=== PATIENT | male | born 1965 | race Caucasian/White ===

== ENCOUNTER 2021-03-29 22:21 | Inpatient (IN) | payer BC, SELFPAY ==
--- NOTE | ~2021-03-29 | XR_ITS ---
EXAMINATION: XR chest 1V portable DATE: 04/01/2021 06:04 INDICATION: Pneumonia TECHNIQUE: frontal view of the chest was obtained. COMPARISON: Chest radiograph dated 03/29/2021 FINDINGS: Hyperexpansion of lungs with scattered regions of increased lucency consistent with emphysema. Patchy airspace opacities throughout the right lung consistent with pneumonia. Pleural-parenchymal scarring at the lung bases. No pneumothorax or definitive pleural effusion. The cardiomediastinal silhouette is normal. IMPRESSION: 1. Scattered airspace opacities throughout the right lung consistent with pneumonia. 2. Emphysema. Reviewed, dictated and finalized at location A. IMPRESSION: 1. Scattered airspace opacities throughout the right lung consistent with pneum onia. 2. Emphysema.
--- NOTE | ~2021-03-29 | XR_ITS ---
EXAMINATION: XR chest 2V DATE: 04/02/2021 07:43 INDICATION: Follow-up pneumonia TECHNIQUE: PA and lateral views of the chest were obtained. COMPARISON: Chest radiograph dated 04/01/2021 and 10/12/2016 FINDINGS: Hyperexpansion of lungs with scattered regions of and architectural distortion with increased lucency consistent with emphysema. No significant change in scattered patchy airspace opacities in the right middle and upper lobes. Curved band of discoid atelectasis/scarring the left lower lung zone. Small right pleural effusion. The cardiomediastinal silhouette is normal. IMPRESSION: 1. No significant interval change in patchy airspace opacities in the right middle and upper lobes co nsistent with pneumonia. 2. Small right pleural effusion. 3. Emphysema. Reviewed, dictated and finalized at location A. IMPRESSION: 1. No significant interval change in patchy airspace opacities in the right mid dle and upper lobes consistent with pneumonia. 2. Small right pleural effusion. 3. Emphysema.
--- NOTE | ~2021-03-29 | XR_ITS ---
EXAMINATION: XR chest 2V DATE: 03/29/2021 23:15 INDICATION: Shortness of breath TECHNIQUE: PA and lateral views of the chest are obtained. COMPARISON: 10/19/2017 FINDINGS: There are airspace opacities of the right upper lobe. The lungs are hyperinflated. There is no pleural effusion or pneumothorax. The cardiomediastinal silhouette is normal. The visualized bone s and soft tissues are unremarkable. IMPRESSION: 1. Right upper lobe airspace opacities which may reflect pneumonia. Recommend followup radiographs in 10-14 days after appropriate therapy to evaluate for improvement/resolution. Reviewed, dictated and finalized at location A. IMPRESSION: 1. Right upper lobe airspace opacities which may reflect pneumonia. Recommend f ollowup radiographs in 10-14 days after appropriate therapy to evaluate for imp rovement/resolution.
[2021-03-29 22:23] VITALS: BP 170/116; PULSE 122; RESP 21; O2SAT 100
[2021-03-29 22:30] VITALS: O2SAT 98
--- NOTE | 2021-03-29 22:33 | ECG_ITS ---
Measurements Intervals [place] Rate: 120 P: 82 UT: 200 QRS: 68 QRSD: 83 T: 84 QT: 411 QTc: 581 Interpretive Statements SINUS TACHYCARDIA BASELINE ARTIFACT- I, II, III, AVL, V1, V3, V6 ABNORMAL ECG Electronically Signed On 03-30-2021 8:19:42 CDT by Douglas Mancera D.O.
[2021-03-29 22:45] VITALS: BP 140/83; PULSE 122; RESP 23; O2SAT 100
[2021-03-29 22:50] VITALS: PULSE 123; RESP 17
[2021-03-29] MEDS: IPRATROPIUM BR 0.02% INH SOLN 0.5 MG/2.5 ML VIAL INHALATION (22:50)
[2021-03-29] MEDS: ALBUTEROL SULFATE NEB 2.5 MG/0.5 ML INH 5 MG INHALATION (22:50)
[2021-03-29 22:52] LABS: Basophils Absolute Auto 0.1 K/mm3 (0.0-0.1); Basophils Percent Auto 0.5 % (0.2-1.2); Eosinophils Absolute Auto 0.1 K/mm3 (0-0.3); Eosinophils Percent Auto 0.8 % (0-4.4); Hematocrit 56.8 % (42.0-52.0); Hemoglobin 18.2 g/dL (14.0-18.0); Immature Granulocyte Percent A 0.6 % (0-0.5); Lymphocytes Absolute Auto 0.87 K/mm3 (0.9-3.2); Lymphocytes Percent Auto 5.2 % (18.3-44.2); Mean Corpuscular Hemoglobin 29.4 pg (26-34); Mean Corpuscular Volume 91.8 fl (80-100); Mean Platelet Volume 10.6 fl (7.4-10.4); Monocytes Absolute Auto 1.3 K/mm3 (0.1-0.6); Monocytes Percent Auto 7.9 % (2.6-8.5); Neutrophils Absolute Auto 14.1 K/mm3 (1.3-6.7); Platelet Count Result 256 k/mm3 (150-375); Red Blood Count 6.19 M/mm3 (4.6-6.20); Red Cell Distribution Width 12.8 % (11.5-14.5); White Blood Count 16.6 K/mm3 (4.5-10.0)
[2021-03-29] MEDS: methylPREDNISolone SOD SUCC 125 MG VIAL IV PUSH (22:55)
[2021-03-29 23:00] VITALS: BP 142/79; PULSE 121; PULSE 123; RESP 15; RESP 18; O2SAT 100
[2021-03-29 23:11] LABS: Lactic Acid Reflex 1.4 mmol/L (0.7-2.1)
[2021-03-29 23:19] LABS: Anion Gap 12 mmol/L (8-16); Blood Urea Nitrogen 20 mg/dL (9-20); Calcium 9.7 mg/dL (8.4-10.2); Carbon Dioxide 32 mmol/L (22-30); Chloride 100 mmol/L (98-107); Estimated CRCL calculation 70 ml/min; Estimated Glomerular Filt Rate > 60; Glucose 160 mg/dL (75-110); Potassium 4.3 mmol/L (3.4-5.0); Sodium 144 mmol/L (137-145)
--- NOTE | 2021-03-29 23:23 | ED.SOB ---
HPI - SOB/Dyspnea General Chief Complaint: Shortness of Breath/Dyspnea Stated Complaint: SOB, fever Time Seen by Provider: 03/29/21 22:28 History of Present Illness HPI Narrative: Patient is a 55-year-old male with history of COPD who is oxygen dependent that presents ER with increased shortness of breath over the last 2 days. Associate with fevers and sweats and cough. Patient found to be hypoxic while on 3 to 4 L of O2 and is now on 5 L. Denies chest pain or chest pressure. No nausea/vomiting. No known sick contacts. 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 Has been using nebulizers at home without improvement. Related Data Home Medications Medication Instructions Recorded Confirmed guaifenesin 600 mg tablet, 600 mg PO BID 02/12/20 03/30/21 extended release 12 hr Allergies Allergy/AdvReac Type Severity Reaction Status Date / Time cephalexin Allergy Unknown Skin Verified 11/28/20 16:04 Reaction Review of Systems Review of Systems: All systems reviewed & are unremarkable except as noted in HPI and below Constitutional: Constitutional: Denies chills and Reports fever(s) Comments: Sweats ENT: Denies nasal congestion and Denies sore throat Cardiovascular: Cardiovascular: Denies chest pain and Denies radiating jaw, neck or arm pain Respiratory: Respiratory: Reports cough, Reports dyspnea and Denies wheezing Gastrointestinal: Gastrointestinal: Denies abdominal pain, Denies nausea and Denies vomiting FOR[facility]LY [facility], [facility] Past Medical History Medical History (Updated 03/30/21 @ 06:15 by Hardy Montanez MD) Chronic respiratory failure COPD (chronic obstructive pulmonary disease) Hypoxemia Shortness of breath Surgical History Surgical History (Updated 03/30/21 @ 05:59 by Estela Doran DO) H/O umbilical hernia repair Family History Family History Mother Family history of thyroid disease Sibling Family history of thyroid disease Diabetes mellitus Grandparent Diabetes mellitus Social History Social History Smoking packs per day: 1.5 Smoking cigarettes per day: 30.0 Years smoked: 40 Smoking pack-years: 60.00 Smoking status: Former smoker Tobacco type: cigarettes Alcohol intake: current Drinks per week: 0 Substance use: never Gender identity (if verbalized by the patient): Male Spiritual care concerns: No Exam Narrative: Exam Narrative: GENERAL: Well-appearing, well-nourished, and in no acute distress. HEAD: Normocephalic, atraumatic. ENT: Mucous membranes moist. CHEST: Diminished throughout. No respiratory distress. HEART: Regular rate and rhythm. Normal peripheral pulses. ABDOMEN: Soft, nontender, nondistended. EXTREMITIES: Normal range of motion. No edema. SKIN: Warm, dry, no rash. NEURO: Alert and oriented x3. PSYCH: Normal mood and affect. Course Course Emergency Course: Patient resting comfortably. Informed results. Admit to the hospital service. Vital Signs Vital signs: Vital Signs Pulse Rate 122 H 03/29/21 22:23 Respiratory Rate 21 H 03/29/21 22:23 Blood Pressure 170/116 H 03/29/21 22:23 Pulse Oximetry 100 03/29/21 22:23 Temperature 97.6 F 03/30/21 04:00 Pulse Rate 88 03/30/21 04:00 Respiratory Rate 18 03/30/21 04:00 Blood Pressure 115/72 03/30/21 04:00 Pulse Oximetry 99 03/30/21 04:00 MDM - SOB/Dyspnea Lab Data Result diagrams: 03/29/21 22:47 03/29/21 22:47 Labs: Lab Results 03/29/21 03/29/21 03/29/21 Range/Units 22:47 22:47 22:47 WBC 16.6 H (4.5-10.0) K/mm3 RBC 6.19 (4.6-6.20) M/mm3 Hgb 18.2 H (14.0-18.0) g/dL Hct 56.8 H (42.0-52.0) % MCV 91.8 (80-100) fl MCH 29.4 (26-34) pg MCHC 32.0 (32-36) g/dl RDW 12.8 (11.5-14.5) % Plt Count 256 (150-375) k/mm3 MPV 10.6 H (7.4-10.4) fl Immature Gran % (Auto) 0.6
[2021-03-30] VITALS (14 sets, daily range): BP systolic 100–147; BP diastolic 62–82; PULSE 68–120; RESP 14–20; TEMP 36.1–36.6; O2SAT 94–100; BMI 25.9
[2021-03-30] MEDS: SODIUM CHLORIDE 0.9% IV 1,000 ML 999 ML IV CONT (00:08)
--- NOTE | 2021-03-30 02:47 | ADMGEN ---
This patient, Alpesh Aguilar, was admitted to [facility] Surg Room 330-01. Patient/family oriented to hospital policies and general routines including ID bracelet, bed and alarms, visiting hours, pain management, procedures, bathroom and other care routines, personal items, smoking policy, room service/diet, and visiting hours. Information on how to activate the Rapid Response Team has been discussed. Patient/Family are encouraged to report perceived risks to care and to ask questions if they do not understand what they are told or what they should do.
--- NOTE | 2021-03-30 05:58 | PM.IMHP ---
H&P: HPI History of Present Illness Date/Time: 03/30/21 05:58 Chief Complaint: Shortness of breath Narrative: 55-year-old male with past medical history of COPD resulting in chronic hypoxic respiratory failure who presented to the ER via private vehicle due to increasing shortness of breath. The patient reports that he began having increased shortness of breath on Wednesday. He was at work sitting at his desk when he became hot and sweaty. He developed the headache and was fatigued. He felt so bad that he left work early. When he got home he put his home O2 on. He reports that he usually only uses his home oxygen at night to sleep. He will also use it in periods of illness. He is usually on 2-3 L nasal cannula but had increased his oxygen to 4 L and was satting 88%. He is usually satting 92-93% per his report. He had abdominal respirations and retractions noted when he arrived to the ER. He denied any increased cough. He denies any significant sputum production be beyond his usual. He has not felt any usual chest heaviness that he develops when he has a COPD exacerbation. He has been using his nebulizer treatments and home inhalers at home without improvement in symptoms. He denies any chest pain. He has had increased dyspnea on exertion which is improved when he lays down. Has not noticed any lower extremity swelling, paroxysmal nocturnal dyspnea or orthopnea. He reports that 1 of the women at work did not feel well but she was pressure to come into work. She was not obviously ill. He has not had the COVID vaccine. He denies any loss of sense of taste or smell. He denies myalgias or arthralgias. He continued to have a headache for couple of days but now his headache has resolved. He had noticed that his urine was darker than usual over the last couple of days. He has been staying well hydrated with Gatorade. He has not had much of an appetite and has not eaten much as he is been sleeping most of the days. He has not had any diarrhea or changes in bowel habits. He received a dose of IV Solu-Medrol, nebulizer treatments, and Levaquin in the ER. He used to follow with Dr. Arango but he has not seen a fire engineer in several years. He has not had pneumonia in several years. He quit smoking tobacco in 2018. He has not had any recent COPD exacerbations. He is mostly sedentary at baseline. 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 Review of Systems Review of Systems: Narrative: 12 systems were reviewed with pertinent positives and negatives per HPI. Except as documented in the HPI, all other systems were reviewed and are negative. [facility] Past Medical History Medical History (Updated 03/30/21 @ 07:40 by Estela Doran DO) Chronic respiratory failure COPD (chronic obstructive pulmonary disease) Hypoxemia Polycythemia secondary to hypoxia Shortness of breath Surgical History Surgical History (Updated 03/30/21 @ 05:59 by Estela Doran DO) H/O umbilical hernia repair Family History Family History Mother Family history of thyroid disease Sibling Family history of thyroid disease Diabetes mellitus Grandparent Diabetes mellitus Social History Social History (Updated 03/30/21 @ 07:37 by Estela Doran DO) Social History: He has been twice and lives alone. He has a female friend who comes over each weekend. He does not have any biologic children. 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 He started smoking at 4 years of age in started smoking at least a pack a day around 9 years of age. He smoked as much as 1.5 packs of cigarettes per day. He has a 60 pack per year smoking history. He has 2 cats at home. Primary care physician: Dr. Blu Sarabia Code status: Full code Surrogate decision maker: Kelly Samson (friend) Smoking packs per day: 1.5 Smoking cigarettes per day: 30.0 Years smoked: 40 Smoking pack-years: 60.
[2021-03-30] MEDS: SODIUM CHLORIDE 0.9% IV 1,000 ML 125 ML IV CONT ×2 (06:42→14:54)
[2021-03-30 06:55] LABS: Anion Gap 7 mmol/L (8-16); Blood Urea Nitrogen 16 mg/dL (9-20); Calcium 8.4 mg/dL (8.4-10.2); Carbon Dioxide 26 mmol/L (22-30); Chloride 104 mmol/L (98-107); Estimated CRCL calculation 102 ml/min; Estimated Glomerular Filt Rate > 60; Glucose 182 mg/dL (75-110); Potassium 4.3 mmol/L (3.4-5.0); Sodium 137 mmol/L (137-145)
[2021-03-30 06:56] LABS: Hematocrit 44.8 % (42.0-52.0); Mean Corpuscular HGB Conc 33.5 g/dl (32-36); Mean Corpuscular Hemoglobin 30.1 pg (26-34); Platelet Count Result 208 k/mm3 (150-375); Red Blood Count 4.98 M/mm3 (4.6-6.20); Red Cell Distribution Width 12.6 % (11.5-14.5); White Blood Count 17.1 K/mm3 (4.5-10.0)
[2021-03-30] MEDS: FLUTICASONE/UMECLIDIN/VILANTER 100-62.5-25 MCG ELLIPTA 1 PUFF INHALATION (07:55)
[2021-03-30] MEDS: ALBUTEROL SULFATE (*SP) INHALER 4 PUFF INHALATION ×4 (07:55→21:47)
[2021-03-30] MEDS: ENOXAPARIN 40 MG/0.4 ML SYRINGE SUB-Q (08:42)
[2021-03-30] MEDS: guaiFENesin 12 HR 600 MG TABCR PO ×2 (08:42→21:48)
[2021-03-30 18:03] LABS: Add Urine Microscopic? YES; Appearance Urine Clear (Clear); Bacteria Urine Trace /hpf; Bilirubin Urine Negative (Negative); Blood Urine Negative (Negative); Color Urine Yellow (Yellow); Glucose Urine UA 3+ mg/dL (Negative); Ketones Urine Trace mg/dL (Negative); Leukocyte Esterase Ur Negative LEU/UL (Negative); Mucus Urine Rare /lpf; Nitrate Urine Negative (Negative); Protein Urine 1+ mg/dL (Negative); Squamous Epithelial Cell Urine Rare /hpf (Few); WBC Urine 0-3 /hpf
[2021-03-30 18:10] LABS: Specific Grav Ur 1.032 (1.001-1.035)
[2021-03-31] VITALS (10 sets, daily range): BP systolic 108–129; BP diastolic 62–98; PULSE 64–92; RESP 16–20; TEMP 36.1–36.6; O2SAT 93–99
[2021-03-31] MEDS: ENOXAPARIN 40 MG/0.4 ML SYRINGE SUB-Q (07:58)
[2021-03-31] MEDS: guaiFENesin 12 HR 600 MG TABCR PO (07:58)
[2021-03-31] MEDS: ALBUTEROL SULFATE (*SP) INHALER 4 PUFF INHALATION ×3 (08:02→18:34)
[2021-03-31] MEDS: FLUTICASONE/UMECLIDIN/VILANTER 100-62.5-25 MCG ELLIPTA 1 PUFF INHALATION (08:03)
--- NOTE | 2021-03-31 10:21 | PM.IMPN ---
Progress Note: A&P Assessment and Plan (1) Pneumonia: Qualifiers: Laterality: right Lung location: unspecified part of lung Pneumonia type: due to unspecified organism Qualified Code(s): J18.9 - Pneumonia, unspecified organism Code(s): J18.9 - Pneumonia, unspecified organism Status: Acute Assessment and Plan: Continue with IV antibiotics (2) Suspected COVID-19 virus infection: Code(s): Z20.822 - Contact with and (suspected) exposure to COVID-19 Status: Acute Assessment and Plan: Test result pending, continue with droplet precautions. (3) COPD (chronic obstructive pulmonary disease): Code(s): J44.9 - Chronic obstructive pulmonary disease, unspecified Status: Acute Assessment and Plan: Continue with oxygen and inhalers. Additional Plan The patient has been placed on empiric antibiotic therapy with Levaquin. The patient is on isolation for possible COVID 19. COVID PCR is pending. Patient has been placed on albuterol inhaler 4 puffs q.6 q.i.d. scheduled. Will continue supplemental oxygen and wean for goal oxygen saturations between 88 and 92%. Blood cultures are pending. Will continue current treatment with IV antibiotics. COVID test is pending. Subjective Date/time seen: 03/31/21 10:21 Patient was seen during the morning rounds today. Mild shortness of breath no chest pain. No abdominal pain, no nausea, vomiting. Mood stable. Review of Systems Review of Systems: All systems reviewed & are unremarkable except as noted in HPI and below (the history and physical exam.) Exam Narrative: Exam Narrative: PHYSICAL EXAM: WEIGHT 70.5 kg BMI 25.9 General: No acute distress, well-developed well-nourished, appears stated age HEENT: Mucous membranes are moist, no oral pharyngeal erythema, good dentition, pupils are equal and reactive, nasal cannula in place Respiratory: Clear to auscultation bilaterally posterior lewis, faint end-expiratory wheezing anterior lewis Cardiovascular: Regular rate, regular rhythm, no murmur, 2+ bilateral radial pedal pulses Gastrointestinal: Soft, nontender, nondistended, positive bowel sounds Skin: Non jaundice, no pallor Musculoskeletal: No clubbing, cyanosis or edema Neurological: Alert and oriented, speech is clear, no facial asymmetry Psychiatric: Appropriate mood and affect, pleasant and cooperative : Deferred Hematologic/lymphatic: No petechiae, no bruising, no anterior cervical or submandibular lymphadenopathy Objective Data Vital Signs Vital Signs: Vital Signs - 24 hr 03/30/21 12:00 03/30/21 16:00 03/30/21 20:00 Temperature 36.1 C L 36.2 C L 36.6 C Pulse Rate 88 82 74 Respiratory Rate 16 20 20 Blood Pressure 133/77 147/67 H 100/62 Pulse Oximetry 97 98 95 03/30/21 20:05 03/30/21 21:29 03/31/21 00:00 Temperature 36.1 C L Pulse Rate 79 75 62 Respiratory Rate 16 16 Blood Pressure 110/62 Pulse Oximetry 98 94 98 03/31/21 04:00 03/31/21 06:00 03/31/21 08:00 Temperature 36.1 C L 36.4 C Pulse Rate 66 64 66 Respiratory Rate 20 16 Blood Pressure 108/69 112/67 Pulse Oximetry 99 97 Intake/Output Intake/Output: Intake & Output 03/28/21 03/29/21 03/30/21 03/31/21 23:59 23:59 23:59 23:59 Intake Total 2760 1900 Output Total 1050 Balance 1710 1900 Meds/Results Medications: Active Medications Generic Name Dose Route Start Last Admin Trade Name Freq PRN Reason Stop Dose Admin Acetaminophen 650 mg 03/30/21 00:16 Acetaminophen 325 Mg Tablet PO Q4H PRN Mild Pain (1-3) or Fever Albuterol 4 puff 03/30/21 12:00 03/31/21 08:02 Albuterol Sulfate (*Sp) Inhaler INHALATION 4 puff QIDRT JOE Administration Enoxaparin Sodium 40 mg 03/30/21 09:00 03/31/21 07:58 Enoxaparin 40 Mg/0.4 Ml Syringe SUB-Q 40 mg DAILY JOE Administration Fluticasone/Umeclidinium/Vilanterol 1 puff 03/30/21 08:00 03/31/21 08:03 Fluticasone/Umeclidin/Vilanter 100-62.5
--- NOTE | 2021-03-31 20:49 | PM.EVENT ---
Event Note Event Note Event Note: The patient stated that he cannot wait any longer that he wants to be discharged to home. I reviewed the records and explained to him that the physician had no mention of the patient being discharged. His COVID swab is still pending. I did call the lab and there was a problem with instrumentation and his test had to be sent out. The test results probably will not be until tomorrow night. The patient stated that he would probably sign out AMA and I explained to him that we would not prescribe any antibiotics if he leaves against medical advice and that he does have pneumonia needs requiring oxygen. I do not feel comfortable discharging this patient at this time.
[2021-04-01] VITALS (9 sets, daily range): BP systolic 126–140; BP diastolic 59–79; PULSE 70–101; RESP 16–18; TEMP 36.4–36.9; O2SAT 93
[2021-04-01 06:44] LABS: Hematocrit 43.8 % (42.0-52.0); Hemoglobin 14.6 g/dL (14.0-18.0); Mean Corpuscular HGB Conc 33.3 g/dl (32-36); Mean Corpuscular Hemoglobin 29.7 pg (26-34); Mean Corpuscular Volume 89.2 fl (80-100); Mean Platelet Volume 10.5 fl (7.4-10.4); Platelet Count Result 263 k/mm3 (150-375); Red Blood Count 4.91 M/mm3 (4.6-6.20); Red Cell Distribution Width 12.6 % (11.5-14.5); White Blood Count 10.9 K/mm3 (4.5-10.0)
[2021-04-01 06:49] LABS: Alanine Aminotransferase 45 U/L (4-50); Albumin Level 3.7 g/dL (3.5-5.1); Alkaline Phosphatase 81 U/L (38-126); Anion Gap 10 mmol/L (8-16); Aspartate Amino Transferase 37 U/L (17-59); Bilirubin,Total 0.3 mg/dL (0.2-1.3); Blood Urea Nitrogen 14 mg/dL (9-20); Calcium 8.6 mg/dL (8.4-10.2); Carbon Dioxide 28 mmol/L (22-30); Chloride 102 mmol/L (98-107); Estimated CRCL calculation 88 ml/min; Estimated Glomerular Filt Rate > 60; Glucose 101 mg/dL (75-110); Potassium 3.8 mmol/L (3.4-5.0); Sodium 140 mmol/L (137-145)
[2021-04-01] MEDS: ALBUTEROL SULFATE (*SP) INHALER 4 PUFF INHALATION ×4 (08:18→21:08)
[2021-04-01] MEDS: FLUTICASONE/UMECLIDIN/VILANTER 100-62.5-25 MCG ELLIPTA 1 PUFF INHALATION (08:18)
[2021-04-01] MEDS: ENOXAPARIN 40 MG/0.4 ML SYRINGE SUB-Q (08:19)
[2021-04-01 13:52] LABS: SARS-CoV-2 RNA PCR Negative (Negative)
[2021-04-01] MEDS: SODIUM CHLORIDE 0.9% IV 1,000 ML 125 ML IV CONT ×2 (14:18→23:29)
--- NOTE | 2021-04-01 16:30 | PM.IMPN ---
Progress Note: A&P Assessment and Plan (1) Pneumonia: Qualifiers: Laterality: right Lung location: unspecified part of lung Pneumonia type: due to unspecified organism Qualified Code(s): J18.9 - Pneumonia, unspecified organism Code(s): J18.9 - Pneumonia, unspecified organism Status: Acute Assessment and Plan: Continue with IV antibiotics 04/01/21 16:30 patient with pneumonia suspect patient may have COVID-19 test is pending patient started on Levaquin for bilateral pneumonia, patient insisting to be discharged, after long discussion patient has agreed to wait 1 more day with IV antibiotics and COVID test results, clinically stable will continue to monitor and further recommendation to follow. (2) Suspected COVID-19 virus infection: Code(s): Z20.822 - Contact with and (suspected) exposure to COVID-19 Status: Acute Assessment and Plan: Test result pending, continue with droplet precautions. (3) COPD (chronic obstructive pulmonary disease): Code(s): J44.9 - Chronic obstructive pulmonary disease, unspecified Status: Acute Assessment and Plan: Continue with oxygen and inhalers. Additional Plan The patient has been placed on empiric antibiotic therapy with Levaquin. The patient is on isolation for possible COVID 19. COVID PCR is pending. Patient has been placed on albuterol inhaler 4 puffs q.6 q.i.d. scheduled. Will continue supplemental oxygen and wean for goal oxygen saturations between 88 and 92%. Blood cultures are pending. Will continue current treatment with IV antibiotics. COVID test is pending. Subjective Date/time seen: 04/01/21 16:30 patient with pneumonia suspect patient may have COVID-19 test is pending patient started on Levaquin for bilateral pneumonia, patient insisting to be discharged, after long discussion patient has agreed to wait 1 more day with IV antibiotics and COVID test results, clinically stable will continue to monitor and further recommendation to follow. Review of Systems Review of Systems: All systems reviewed & are unremarkable except as noted in HPI and below (the history and physical exam.) Exam Narrative: Exam Narrative: Patient is comfortable, NAD HEENT: eyes are clear and none icteric LUNGS: normal respiratory effort ABD: not distended Lower extremities: no edema SKIN: nonjaundiced Neuro: grossly intact normal speech. Objective Data Vital Signs Vital Signs: Vital Signs - 24 hr 03/31/21 16:45 03/31/21 20:00 04/01/21 00:00 Temperature Pulse Rate 78 80 Respiratory Rate 16 Blood Pressure 127/70 Pulse Oximetry 93 04/01/21 04:00 04/01/21 04:07 04/01/21 08:00 Temperature 98.4 F Pulse Rate 80 82 101 H Respiratory Rate 18 17 Blood Pressure 140/75 Pulse Oximetry 93 93 04/01/21 12:00 04/01/21 14:00 04/01/21 16:00 Temperature 97.5 F L Pulse Rate 82 99 98 Respiratory Rate 16 Blood Pressure 127/59 L Pulse Oximetry 93 Intake/Output Intake/Output: Intake & Output 03/29/21 03/30/21 03/31/21 04/01/21 23:59 23:59 23:59 23:59 Intake Total 2760 3390 660 Output Total 1050 800 Balance 1710 2590 660 Meds/Results Medications: Active Medications Generic Name Dose Route Start Last Admin Trade Name Freq PRN Reason Stop Dose Admin Acetaminophen 650 mg 03/30/21 00:16 Acetaminophen 325 Mg Tablet PO Q4H PRN Mild Pain (1-3) or Fever Albuterol 4 puff 03/30/21 12:00 04/01/21 15:37 Albuterol Sulfate (*Sp) Inhaler INHALATION 4 puff QIDRT JOE Administration Enoxaparin Sodium 40 mg 03/30/21 09:00 04/01/21 08:19 Enoxaparin 40 Mg/0.4 Ml Syringe SUB-Q 40 mg DAILY JOE Administration Fluticasone/Umeclidinium/Vilanterol 1 puff 03/30/21 08:00 04/01/21 08:18 Fluticasone/Umeclidin/Vilanter 100-62.5-25 Mcg Ellipta INHALATION 1 puff DAILYRT JOE Administration Guaifenesin 600 mg 03/30/21 09:00 04/01/21 08:19 Guaifenesin 1
[2021-04-01] MEDS: guaiFENesin 12 HR 600 MG TABCR PO (21:09)
[2021-04-02] VITALS: PULSE 72
[2021-04-02 06:00] VITALS: BP 131/78; PULSE 81; RESP 16; TEMP 36.2; O2SAT 94
[2021-04-02] MEDS: ENOXAPARIN 40 MG/0.4 ML SYRINGE SUB-Q (08:32)
[2021-04-02] MEDS: ALBUTEROL SULFATE (*SP) INHALER 4 PUFF INHALATION (08:33)
[2021-04-02] MEDS: FLUTICASONE/UMECLIDIN/VILANTER 100-62.5-25 MCG ELLIPTA 1 PUFF INHALATION (08:33)
[2021-04-02] MEDS: guaiFENesin 12 HR 600 MG TABCR PO (08:33)
[2021-04-02 09:00] VITALS: PULSE 79
--- NOTE | 2021-04-02 10:26 | PM.DS ---
DS: Admitting Diagnosis Admitting Diagnosis Admitting Diagnosis: Chief Complaint: Shortness of breath DS: Discharge Diagnosis Discharge Diagnosis (1) Pneumonia: Qualifiers: Laterality: right Lung location: unspecified part of lung Pneumonia type: due to unspecified organism Qualified Code(s): J18.9 - Pneumonia, unspecified organism Code(s): J18.9 - Pneumonia, unspecified organism Status: Acute Assessment and Plan: Continue with IV antibiotics 04/01/21 16:30 patient with pneumonia suspect patient may have COVID-19 test is pending patient started on Levaquin for bilateral pneumonia, patient insisting to be discharged, after long discussion patient has agreed to wait 1 more day with IV antibiotics and COVID test results, clinically stable will continue to monitor and further recommendation to follow. (2) Suspected COVID-19 virus infection: Code(s): Z20.822 - Contact with and (suspected) exposure to COVID-19 Status: Acute Assessment and Plan: Test result pending, continue with droplet precautions. (3) COPD (chronic obstructive pulmonary disease): Code(s): J44.9 - Chronic obstructive pulmonary disease, unspecified Status: Acute Assessment and Plan: Continue with oxygen and inhalers. DS: Summary Hospital Course Reason for hospitalization: Chief Complaint: Shortness of breath Narrative: 55-year-old male with past medical history of COPD resulting in chronic hypoxic respiratory failure who presented to the ER via private vehicle due to increasing shortness of breath. The patient reports that he began having increased shortness of breath on Wednesday. He was at work sitting at his desk when he became hot and sweaty. He developed the headache and was fatigued. He felt so bad that he left work early. When he got home he put his home O2 on. He reports that he usually only uses his home oxygen at night to sleep. He will also use it in periods of illness. He is usually on 2-3 L nasal cannula but had increased his oxygen to 4 L and was satting 88%. He is usually satting 92-93% per his report. He had abdominal respirations and retractions noted when he arrived to the ER. He denied any increased cough. He denies any significant sputum production be beyond his usual. He has not felt any usual chest heaviness that he develops when he has a COPD exacerbation. He has been using his nebulizer treatments and home inhalers at home without improvement in symptoms. He denies any chest pain. He has had increased dyspnea on exertion which is improved when he lays down. Has not noticed any lower extremity swelling, paroxysmal nocturnal dyspnea or orthopnea. He reports that 1 of the women at work did not feel well but she was pressure to come into work. She was not obviously ill. He has not had the COVID vaccine. He denies any loss of sense of taste or smell. He denies myalgias or arthralgias. He continued to have a headache for couple of days but now his headache has resolved. He had noticed that his urine was darker than usual over the last couple of days. He has been staying well hydrated with Gatorade. He has not had much of an appetite and has not eaten much as he is been sleeping most of the days. He has not had any diarrhea or changes in bowel habits. He received a dose of IV Solu-Medrol, nebulizer treatments, and Levaquin in the ER. He used to follow with Dr. Arango but he has not seen a yard assistant in several years. He has not had pneumonia in several years. He quit smoking tobacco in 2018. He has not had any recent COPD exacerbations. He is mostly sedentary at baseline. 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 Hospital Course: Discuss with patient has pneumonia and needs IV abx for another 2-3 days however patient wish to be discharged, will discharge on oral Levaquin, patient will follow up with his primary care provider as soon as possible, patiasim
== END 2021-04-02 11:37 | disposition home or self-care (01) | DRG 194 ==
LOC: ANHED 22:44 → ANH3MEDSUR 03-30 01:11
PROVIDERS: Internal Medicine; Admitting Provider Internal Medicine; Emergency Provider Emergency Medicine; PCP Family Medicine; Visit Provider Family Medicine
DX: J18.9 Pneumonia, unspecified organism (principal); J44.0 Chronic obstructive pulmonary disease with (acute) lower respiratory infection; J96.11 Chronic respiratory failure with hypoxia; Z20.822 Contact with and (suspected) exposure to COVID-19; Z87.891 Personal history of nicotine dependence; Z79.899 Other long term (current) drug therapy
CPT/HCPCS: 36415; 71045; 71046; 80048; 80053; 81001; 83605; 85025; 85027; 87040; 93005; 94640; 96361; 96365; 96375; 99285; A9270; C9803; G0378; J1650; J1956; J2930; J7030; U0003; U0005

== ENCOUNTER 2021-04-21 15:03 | Inpatient (IN) | payer BC, SELFPAY ==
[2021-04-21] VITALS (8 sets, daily range): BP systolic 117–188; BP diastolic 69–88; PULSE 90–133; RESP 14–26; TEMP 36.4–36.6; O2SAT 96–98; BMI 26.4
--- NOTE | ~2021-04-21 | CT_ITS ---
EXAMINATION: CTA chest PE protocol EXAM DATE: 04/21/2021 16:36 INDICATION: Shortness of air. Hypoxia. History COPD. TECHNIQUE: Spiral CTA of the chest (pulmonary arteries) was performed with 100 cc Omnipaque 350 intr avenous contrast injection. Images were acquired during the pulmonary arterial phase. Coronal maxi mum intensity projection 3D-reconstructions were created by the technologist on dedicated workstation . Axial, coronal and sagittal reformatted images were reviewed. The dose-length product (DLP) for t his examination was 681.00 mGy-cm. The exposure was tailored according to patient size (auto mA exp osure control), and iterative reconstruction (ASIR) was used as additional dose reduction technique. Comparison is made to prior examination from 10/13/2016. Correlation also made with chest x-rays from l ast month. FINDINGS: Pulmonary arteries are well opacified and without intraluminal filling defects. No thora cic aortic dissection. There are 2 regions of right lung airspace disease, likely some residual pneu monia/atelectasis from patient's pneumonia last month. A follow-up CT recommended in 3 months to excl ude any underlying cancer. There is moderate emphysema and hyperinflation. Some linear atelectasis. . There are no pleural or pericardial effusions. Tracheobronchial tree is patent. There is no med iastinal, hilar or axillary lymphadenopathy. There is no pneumothorax. Heart normal in size. Th ere is mild coronary arterial calcification, arterial sclerosis. Upper abdomen is unremarkable. Th ere is thoracic spondylosis without osteoblastic or osteolytic lesions identified. IMPRESSION: 1. 2 regions of subsegmental right upper lobe airspace disease likely residual pneumonia/atelectasis from last month. Follow-up chest CT in 3 months recommended to exclude underlying cancer. 2. Moderate emphysema and hyperinflation. 3. No pulmonary emboli. Reviewed, dictated and finalized at location A. IMPRESSION: 1. 2 regions of subsegmental right upper lobe airspace disease likely residual pneumonia/atelectasis from last month. Follow-up chest CT in 3 months recommen ded to exclude underlying cancer. 2. Moderate emphysema and hyperinflation. 3. No pulmonary emboli.
--- NOTE | ~2021-04-21 | CT_ITS ---
EXAMINATION: CT abdomen pelvis w con DATE: 04/24/2021 00:04 INDICATION: Elevated lactate TECHNIQUE: Computed tomography (CT) of the abdomen and pelvis was performed with 100 cc Omnipaque 350 intravenous contrast. Automated exposure control and iterative reconstruction technique were employe d. Exam dose: 468.82 mGy-cm total exam DLP. COMPARISON: None. FINDINGS: Emphysematous changes are noted. There is mild dependent atelectasis or scarring of the lingula and posterior right lung base. Normal heart size. No pericardial or pleural effusion. There are multiple scattered hepatic cysts measuring up to approximately 1 cm maximal dimension. Contracted gallbladder. No bile duct dilatation. Normal splenic size. No pancreatic mass lesion, calcification or ductal dilatation. Normal morphology of the adrenal glands. No renal mass lesion or urinary tract calculus or hydroureteronephrosis. The urinary bladder is unrem arkable. Prostate gland is unremarkable. There is atherosclerotic calcification but normal caliber of the abdominal aorta. The celiac and supe rior mesenteric and inferior mesenteric arteries appear widely patent. No intraperitoneal or retroperitoneal or pelvic mass lesion or adenopathy or ascites. There is an approximately 10 cm segment of mildly dilated (3.1 cm diameter) small bowel in the left m id to lower abdomen with mild wall thickening and fluid level; consider small bowel series. Small bow el is otherwise unremarkable. Terminal ileum appears normal. Normal appendix. There are multiple diverticula of the sigmoid and descending colon; no CT evidence of diverticulitis. No bowel obstruction, bowel wall thickening, pneumatosis or intraperitoneal free air. No suspicious osteolytic or osteoblastic lesions. IMPRESSION: Emphysema Scattered 1 cm smaller hepatic cysts 10 mm centimeters segment of mildly dilated small bowel with fluid level, mid to lower left abdomen. Consider small bowel series Normal appendix, normal terminal ileum Diverticulosis of the left colon; no CT evidence of diverticulitis Reviewed, dictated and finalized at Location [facility]. Reviewed, dictated and finalized at location A. IMPRESSION: Emphysema Scattered 1 cm smaller hepatic cysts 10 mm centimeters segment of mildly dilated small bowel with fluid level, mid t o lower left abdomen. Consider small bowel series Normal appendix, normal terminal ileum Diverticulosis of the left colon; no CT evidence of diverticulitis
--- NOTE | ~2021-04-21 | CT_ITS ---
EXAMINATION: CT brain wo con EXAM DATE: 04/21/2021 16:36 INDICATION: Seizure. Awake but unresponsive. Temporary change in awareness. Shortness of air. TECHNIQUE: Spiral CT of the head was performed without contrast. Axial, coronal and sagittal images were reviewed. The dose-length product (DLP) for this examination was 681.00 mGy-cm. The exposure w as tailored according to patient size, and iterative reconstruction (ASIR) was used as additional dos e reduction technique. There is no prior study for comparison. FINDINGS: There is no acute intraparenchymal hemorrhage. No evidence of intraparenchymal brain mass lesion. No evidence of acute infarction. There is no mass effect or midline shift. The ventricles are normal in size. There are no extra-axial collections. There are no acute calvarial fractures. T he orbits are unremarkable. Soft tissue is unremarkable. Moderate amount of right sphenoid and maxi llary sinus mucoperiosteal thickening. IMPRESSION: 1. No acute intracranial findings. Reviewed, dictated and finalized at location A.
--- NOTE | ~2021-04-21 | XR_ITS ---
EXAMINATION: XR chest 1V portable EXAM DATE: 04/21/2021 15:15 INDICATION: Shortness of breath, COPD. Low oxygen saturation. Awake but not responding. TECHNIQUE: Portable AP frontal chest x-ray was obtained. Comparison is made to prior examination from 04/02/2021. FINDINGS: The lungs are hyperinflated which can be seen with chronic obstructive pulmonary disease (a clinical diagnosis of functional impairment), but is not diagnostic of it. Small amount of right meme g residual airspace disease, improved compared to March. The lungs are otherwise clear. Some left lowe r lobe bullous disease. There are no pleural effusions. The cardiomediastinal silhouette is within n ormal limits. There is no pneumothorax suspected. The bones and soft tissues are unremarkable. IMPRESSION: 1. Nearly resolved right lung airspace disease residual from pneumonia last month. 2. Hyperinflation. Reviewed, dictated and finalized at location A. IMPRESSION: 1. Nearly resolved right lung airspace disease residual from pneumonia last mo nth. 2. Hyperinflation.
--- NOTE | ~2021-04-21 | XR_ITS ---
XR sm bowel follow through [facility] DATE: 04/24/2021 10:12 INDICATION: 10 cm segment of mildly dilated small bowel in the mid to lower left abdomen on 04/23/2021 CT abdomen pelvis examination. Elevated lactate. TECHNIQUE: Serial images of the abdomen following oral administration of barium. Spot images of the t erminal ileum. COMPARISON: 04/23/2021 CT abdomen pelvis FINDINGS: There is normal transit of contrast material through the small bowel without evidence of st ricture, obstruction, abnormal dilatation, mucosal fold thickening, intraluminal mass lesion or diver ticulum. IMPRESSION: Normal-appearing small bowel Reviewed, dictated and finalized at Location [facility]. Reviewed, dictated and finalized at location A.
--- NOTE | 2021-04-21 15:20 | PC.NURSE ---
Arrives to ED, nonverbal, arms cleanches and eyes up to right. Doesn't focus eyes or look to side of voice. Dr. Montanez in o see pt immediately. Per EMS pt was talking in ambulance on way here and then stopped upon arrival. Skin color cyanotic, oxygen started immediately , SpO2 84 on RA. Currently on 6l with SpO2 up to 92%. Approx 7 minutesa fter arrival is able to answer questions and moving all extrems.
[2021-04-21 15:22] LABS: Alveolar/Arterial O2 Gradient 81.9 mmHg; Base Excess ABG -5.4 mEq/l (+/-2.0); Carboxyhemoglobin 0.7 % THb (0-2.0); Fractional Inspired Oxygen 40 %; HCO3 ABG 25.9 mEq/l (22.0-26.0); Methemoglobin ABG 0.7 %THb (0-1.5); Oxygen Content ABG 24.2 %vol (16.0-22.0); Oxygen Saturation ABG 96.8 % (95.0-100.0); Oxyhemoglobin 96.2 % THb (90.0-100.0); PO2 ABG 115.3 mmHg (80.0-100.0); PO2 FiO2 Ratio Arterial Blood 2.88 %; Reduced Hemoglobin 2.4 %THb (0-5.0); Total Hemoglobin 17.8 g/dL (12.0-18.0)
[2021-04-21 15:23] LABS: Device NASAL CANNULA; Modified Allen's Test Unable to perform; PCO2 ABG 76.5 mmHg (35.0-45.0); Site Drawn RIGHT RADIAL; pH ABG 7.148 (7.350-7.450)
--- NOTE | 2021-04-21 15:31 | ECG_ITS ---
Measurements Intervals [place] Rate: 0 P: FL: 0 QRS: QRSD: 0 T: QT: 0 QTc: 0 Interpretive Statements SINUS TACHYCARDIA DELAYED PRECORDIAL R/S TRANSITION MINIMAL Q WAVES- INFERIOR LEADS BORDERLINE T WAVE ABNORMALITY- INF/HIGH LAT LEADS BASELINE ARTIFACT- I, II, III, AVR, AVF, V1-V6 ABNORMAL ECG Electronically Signed On 04-21-2021 15:58:02 CDT by Douglas Mancera D.O.
[2021-04-21 15:42] LABS: Basophils Absolute Auto 0.2 K/mm3 (0.0-0.1); Basophils Percent Auto 0.5 % (0.2-1.2); Eosinophils Percent Auto 0.1 % (0-4.4); Hematocrit 54.4 % (42.0-52.0); Hemoglobin 17.1 g/dL (14.0-18.0); Immature Granulocyte Absolute 0.36 K/mm3 (0.00-0.031); Lymphocytes Absolute Auto 1.97 K/mm3 (0.9-3.2); Lymphocytes Percent Auto 5.6 % (18.3-44.2); Mean Corpuscular HGB Conc 31.4 g/dl (32-36); Mean Corpuscular Hemoglobin 29.2 pg (26-34); Mean Corpuscular Volume 92.8 fl (80-100); Mean Platelet Volume 10.9 fl (7.4-10.4); Monocytes Absolute Auto 2.3 K/mm3 (0.1-0.6); Monocytes Percent Auto 6.5 % (2.6-8.5); Neutrophils Absolute Auto 30.3 K/mm3 (1.3-6.7); Neutrophils Percent Auto 86.3 % (45.5-73.1); Platelet Count Result 340 k/mm3 (150-375); Red Blood Count 5.86 M/mm3 (4.6-6.20); Red Cell Distribution Width 12.8 % (11.5-14.5); White Blood Count 35.2 K/mm3 (4.5-10.0)
[2021-04-21 15:44] LABS: Glucose Point of Care 248 mg/dl (65-105)
[2021-04-21 15:51] LABS: Anion Gap 8 mmol/L (8-16); Blood Urea Nitrogen 9 mg/dL (9-20); Calcium 8.9 mg/dL (8.4-10.2); Carbon Dioxide 30 mmol/L (22-30); Chloride 102 mmol/L (98-107); Estimated CRCL calculation 102 ml/min; Estimated Glomerular Filt Rate > 60; Glucose 222 mg/dL (75-110); Potassium 4.5 mmol/L (3.4-5.0); Sodium 140 mmol/L (137-145)
[2021-04-21 16:52] LABS: Alveolar/Arterial O2 Gradient 80.1 mmHg; Base Excess ABG -2.4 mEq/l (+/-2.0); Carboxyhemoglobin 1.1 % THb (0-2.0); Device NON-INVASIVE VENT; Fractional Inspired Oxygen 35 %; HCO3 ABG 23.1 mEq/l (22.0-26.0); Methemoglobin ABG 0.5 %THb (0-1.5); Modified Allen's Test Pass; Oxygen Content ABG 23.1 %vol (16.0-22.0); Oxygen Saturation ABG 98.2 % (95.0-100.0); Oxyhemoglobin 96.7 % THb (90.0-100.0); PCO2 ABG 42.1 mmHg (35.0-45.0); PO2 ABG 120.5 mmHg (80.0-100.0); PO2 FiO2 Ratio Arterial Blood 3.44 %; Reduced Hemoglobin 1.7 %THb (0-5.0); Site Drawn RIGHT RADIAL; Total Hemoglobin 16.9 g/dL (12.0-18.0); pH ABG 7.357 (7.350-7.450)
[2021-04-21 16:53] LABS: Non-Invasive Expiratory Pressure 5 CMH2O; Non-Invasive Inspiratory Pressure 16 CMH2O; Non-Invasive Vent Rate 12 /MIN
--- NOTE | 2021-04-21 17:16 | ED.SOB ---
HPI - SOB/Dyspnea General Chief Complaint: Shortness of Breath/Dyspnea Stated Complaint: DIFFICULTY BREATHING Time Seen by Provider: 04/21/21 15:07 History of Present Illness HPI Narrative: Patient is a 55-year-old male with bad emphysema who presents ER and respiratory distress. Found to be hypoxic in the 70s at home on his home O2. Patient received Decadron and nebulizer treatments in route. Upon arrival patient went from being oriented x3 to poorly responsive and mottled. Related Data Home Medications Medication Instructions Recorded Confirmed guaifenesin 600 mg tablet, 600 mg PO BID 02/12/20 03/30/21 extended release 12 hr Allergies Allergy/AdvReac Type Severity Reaction Status Date / Time cephalexin Allergy Unknown Skin Verified 04/21/21 16:30 Reaction Review of Systems Review of Systems: ROS unobtainable: Yes unobtainable due to medical condition PMFSH Past Medical History Medical History (Updated 04/21/21 @ 17:20 by Hardy Montanez MD) Chronic respiratory failure COPD (chronic obstructive pulmonary disease) Hypoxemia Polycythemia secondary to hypoxia Shortness of breath Surgical History Surgical History (Updated 03/30/21 @ 05:59 by Estela Doran DO) H/O umbilical hernia repair Family History Family History Mother Family history of thyroid disease Sibling Family history of thyroid disease Diabetes mellitus Grandparent Diabetes mellitus Social History Social History (Updated 03/30/21 @ 07:37 by Estela Doran DO) Social History: He has been twice and lives alone. He has a female friend who comes over each weekend. He does not have any biologic children. 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 He started smoking at 4 years of age in started smoking at least a pack a day around 9 years of age. He smoked as much as 1.5 packs of cigarettes per day. He has a 60 pack per year smoking history. He has 2 cats at home. Primary care physician: Dr. Blu Sarabia Code status: Full code Surrogate decision maker: Kelly Mali (friend) Smoking packs per day: 1.5 Smoking cigarettes per day: 30.0 Years smoked: 40 Smoking pack-years: 60.00 Smoking status: Former smoker Tobacco type: cigarettes Alcohol intake: never Substance use: never Gender identity (if verbalized by the patient): Male Spiritual care concerns: No Exam Narrative: Exam Narrative: GENERAL: Mottled in appearance, well-nourished, and in severe. HEAD: Normocephalic, atraumatic. EYES: PERRL and EOMI. ENT: Mucous membranes moist. CHEST: Diminished throughout and in severe respiratory distress. Unable to give answers due to distress. HEART: Tachycardic and regular. Normal peripheral pulses. ABDOMEN: Soft, nontender, nondistended. EXTREMITIES: Normal range of motion. No edema. SKIN: Cool, dry, mottled. NEURO: Rigid upper extremities in extension nearly seizure-like however patient can follow commands. Unable to answer orientation questions due to respiratory distress. Course Vital Signs Vital signs: Vital Signs Temperature 97.8 F 04/21/21 15:08 Pulse Rate 120 H 04/21/21 15:08 Respiratory Rate 24 H 04/21/21 15:08 Blood Pressure 188/88 H 04/21/21 15:08 Pulse Oximetry 97 04/21/21 15:08 Temperature 97.8 F 04/21/21 15:08 Pulse Rate 133 H 04/21/21 15:37 Respiratory Rate 14 04/21/21 15:37 Blood Pressure 188/88 H 04/21/21 15:08 Pulse Oximetry 97 04/21/21 15:37 MDM - SOB/Dyspnea Lab Data Result diagrams: 04/21/21 15:16 04/21/21 15:16 Labs: Lab Results 04/21/21 04/21/21 04/21/21 Range/Units 15:08 15:16 15:16 WBC 35.2 H (4.5-10.0) K/mm3 RBC 5.86 (4.6-6.20) M/mm3 Hgb 17.1 (14.0-18.0) g/dL Hct 54.4 H (42.0-52.0) % MCV 92.8 (80-100) fl MCH 29.2 (26-34) pg MCHC 31.4 L (32-36) g/dl RDW 12.8 (11.5-14.5) % Plt Count 340 (
[2021-04-21 17:38] LABS: Ethanol < 10 mg/dL (<10); Lactic Acid Reflex 3.4 mmol/L (0.7-2.1)
[2021-04-21 18:35] LABS: Add Urine Microscopic? YES; Appearance Urine Clear (Clear); Bilirubin Urine Negative (Negative); Blood Urine Negative (Negative); Color Urine Yellow (Yellow); Glucose Urine UA 1+ mg/dL (Negative); Ketones Urine Trace mg/dL (Negative); Leukocyte Esterase Ur Negative LEU/UL (Negative); Mucus Urine Rare /lpf; Nitrate Urine Negative (Negative); Protein Urine Negative (Negative); RBC Urine 0-2 /hpf (0-2); Urobilinogen Urine Negative mg/dL (<2.0); WBC Urine 0-3 /hpf
[2021-04-21 18:39] LABS: Specific Grav Ur > 1.060 (1.001-1.035)
[2021-04-21] MEDS: SODIUM CHLORIDE 0.9% IV 1,000 ML 125 ML IV CONT (18:47)
[2021-04-21] MEDS: methylPREDNISolone SOD SUCC 125 MG VIAL 60 MG IV PUSH (19:09)
[2021-04-21 19:15] LABS: Amphetamine Screen Urine Negative (Negative); Barbiturate Screen Urine Negative (Negative); Benzodiazepines Screen Urine Negative (Negative); Cannabinoid Screen Urine Negative (Negative); Cocaine Screen Urine Negative (Negative); Methadone Screen Urine Negative (Negative); Opiate Screen Urine Negative (Negative); Phencyclidine Screen Urine Negative (Negative)
--- NOTE | 2021-04-21 19:59 | PM.IMHP ---
H&P: HPI History of Present Illness Date/Time: 04/21/21 19:59 Chief Complaint: difficulty breathing Narrative: 55-year-old male with past medical history of COPD with chronic hypoxic respiratory failure and recent hospitalization for pneumonia who presented to the ER with difficulty breathing. the patient reports that he has suddenly woke up from sleep with the mehul distress at around 3:00 a.m.. He struck for about 12 hours before he called EMS . On EMS arrival to his home the patient was satting 67% on room air. He received 2 nebulizer treatments and Decadron in route to the hospital . After these treatments the patient was reportedly satting 97% on room air. However when he arrived to the ER he was satting 83% on room air and had abdominal respirations and respiratory distress. He was placed on BiPAP with improvement in his symptoms. he did not require any additional nebulizer treatments in the ER. He was admitted to IMU for respiratory distress. The patient has CT a of the chest which demonstrated improved areas of infiltrate compared to prior imaging recent increased cough, dyspnea on exertion or lower extremity edema from baseline. He has not been having any fevers or chills. He has not had any recent known ill contacts. He still refuses to receive the COVID vaccine. He did try using his nebulizer treatment at home and starch mangle tender hours without relief in his symptoms. He uses home O2 at night and as needed. He was wearing his oxygen when his symptoms started. He has not had any rhinorrhea, nasal congestion, a done aphasia, chest pain, or changes in bowel habits. He has chronic dark urine. He does not drink much as far as fluids. He reports that his appetite has been stable. Review of Systems Review of Systems: Narrative: 12 systems were reviewed with pertinent positives and negatives per HPI. Except as documented in the HPI, all other systems were reviewed and are negative. [facility] Past Medical History Medical History (Updated 04/21/21 @ 22:11 by Estela Doran DO) Chronic respiratory failure on p.r.n. home O2 COPD (chronic obstructive pulmonary disease) Polycythemia secondary to hypoxia Surgical History Surgical History H/O umbilical hernia repair Family History Family History Mother Family history of thyroid disease Sibling Family history of thyroid disease Diabetes mellitus Grandparent Diabetes mellitus Social History Social History (Updated 04/21/21 @ 20:04 by Estela Doran DO) Social History: He has been twice and lives alone. He has a female friend who comes over each weekend. He does not have any biologic children. 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 He started smoking at 4 years of age in started smoking at least a pack a day around 9 years of age. He smoked as much as 1.5 packs of cigarettes per day. He has a 60 pack per year smoking history. He has 2 cats at home. Primary care physician: Dr. Blu Sarabia Code status: Full code Surrogate decision maker: Kelly Samson (friend) Smoking packs per day: 1.5 Smoking cigarettes per day: 30.0 Years smoked: 40 Smoking pack-years: 60.00 Smoking status: Former smoker Tobacco type: cigarettes Alcohol intake: never Substance use: never Gender identity (if verbalized by the patient): Male Spiritual care concerns: No Meds Home Medications and Allergies Home Medications Medication Instructions Recorded Confirmed Type guaifenesin 600 mg tablet, 600 mg PO BID 02/12/20 03/30/21 History extended release 12 hr albuterol sulfate 90 mcg/actuation See Rx Instructions .ROUTE 12/31/20 03/30/21 Rx aerosol inhaler .COMPLEX #9 gram ipratropium 0.5 mg-albuterol 3 mg See Rx Instructions .ROUTE 01/27/21 03/30/21 Rx (2.5 mg base)/3 mL nebulization .COMPLEX #180 ml soln fluticasone fur. 100 mcg-umeclid
[2021-04-21] MEDS: SODIUM CHLORIDE 0.9% IV 2,200 ML/1,000 ML BAG 999 ML IV CONT (20:07)
[2021-04-21 20:20] LABS: Reflex Lactic Acid Yes or No Add Lactic
[2021-04-21 22:23] LABS: Lactic Acid 5.1 mmol/L (0.7-2.1)
[2021-04-21] MEDS: SODIUM CHLORIDE 0.9% IV 1,000 ML 999 ML IV CONT (23:04)
--- NOTE | 2021-04-21 23:14 | ADMGEN ---
This patient, Alpesh Aguilar, was admitted to IMU Room 207-01 on 04/21/21 at 2115. Patient/family oriented to hospital policies and general routines including ID bracelet, bed and alarms, visiting hours, pain management, procedures, bathroom and other care routines, personal items, smoking policy, room service/diet, and visiting hours. Information on how to activate the Rapid Response Team has been discussed. Patient/Family are encouraged to report perceived risks to care and to ask questions if they do not understand what they are told or what they should do.
[2021-04-22] VITALS (20 sets, daily range): BP systolic 115–132; BP diastolic 60–68; PULSE 78–109; RESP 12–20; TEMP 36.3–36.8; O2SAT 92–100
[2021-04-22] MEDS: IPRATROPIUM BR 0.02% INH SOLN 0.5 MG/2.5 ML VIAL INHALATION ×4 (03:22→20:24)
[2021-04-22 03:54] LABS: Basophils Percent Auto 0.1 % (0.2-1.2); Eosinophils Percent Auto 0.1 % (0-4.4); Hematocrit 44.5 % (42.0-52.0); Hemoglobin 14.5 g/dL (14.0-18.0); Immature Granulocyte Absolute 0.15 K/mm3 (0.00-0.031); Immature Granulocyte Percent A 0.8 % (0-0.5); Lymphocytes Absolute Auto 0.65 K/mm3 (0.9-3.2); Lymphocytes Percent Auto 3.6 % (18.3-44.2); Mean Corpuscular HGB Conc 32.6 g/dl (32-36); Mean Corpuscular Hemoglobin 29.3 pg (26-34); Mean Corpuscular Volume 89.9 fl (80-100); Monocytes Absolute Auto 0.3 K/mm3 (0.1-0.6); Monocytes Percent Auto 1.4 % (2.6-8.5); Platelet Count Result 209 k/mm3 (150-375); Red Blood Count 4.95 M/mm3 (4.6-6.20); Red Cell Distribution Width 12.8 % (11.5-14.5); White Blood Count 18.1 K/mm3 (4.5-10.0)
[2021-04-22 03:58] LABS: Lactic Acid Reflex 2.3 mmol/L (0.7-2.1)
[2021-04-22 04:01] LABS: Anion Gap 8 mmol/L (8-16); Blood Urea Nitrogen 10 mg/dL (9-20); Calcium 8.4 mg/dL (8.4-10.2); Carbon Dioxide 26 mmol/L (22-30); Chloride 104 mmol/L (98-107); Estimated CRCL calculation 102 ml/min; Estimated Glomerular Filt Rate > 60; Glucose 155 mg/dL (75-110); Sodium 138 mmol/L (137-145)
[2021-04-22] MEDS: SODIUM CHLORIDE 0.9% IV 1,000 ML 125 ML IV CONT (09:08)
[2021-04-22] MEDS: ENOXAPARIN 40 MG/0.4 ML SYRINGE SUB-Q (09:09)
[2021-04-22] MEDS: LORATADINE/PSEUDOEPHEDRINE (*CRX) 10/240 MG TABLET ER 24 HR 1 TAB PO (09:09)
[2021-04-22] MEDS: methylPREDNISolone SOD SUCC 125 MG VIAL 60 MG IV PUSH (09:09)
--- NOTE | 2021-04-22 13:26 | PM.IMPN ---
Progress Note: A&P Assessment and Plan (1) Acute on chronic respiratory failure with hypoxemia: Code(s): J96.21 - Acute and chronic respiratory failure with hypoxia Status: Acute Assessment and Plan: The patient has been admitted respiratory failure was likely due to COPD exacerbation. CT imaging demonstrates old areas of prior pneumonia. He has not had any new fevers or chills. I suspect the majority of the patient's leukocytosis is due to leukemoid reaction as he was in respiratory distress for 12 hours before coming to the ER. He was markedly hypoxic and hypercapnic on arrival. the patient has not been vaccinated for COVID, but he does not have any symptoms of COVID and his CT scan is not suggesting it. he has not been tested during this admission. Patient is still on empiric antibiotic therapy with IV Levaquin. Blood cultures are pending. For the patient's COPD exacerbation will schedule Xopenex and Atrovent. Will stop albuterol as the patient has persistent tachycardia. Will decreased IV Solu-Medrol to 40 mg q.8 hours. Continue supplemental oxygen at 1 L nasal cannula, and wean as tolerated. BiPAP as needed. I did consult pulmonology. He use to see Dr. Danae Quezada, but hasn't seen anyone in years continue monitoring. (2) Acute exacerbation of chronic obstructive pulmonary disease (COPD): Code(s): J44.1 - Chronic obstructive pulmonary disease with (acute) exacerbation Status: Acute Assessment and Plan: See above (3) Sepsis: Code(s): A41.9 - Sepsis, unspecified organism Status: Acute Assessment and Plan: the patient does have significant leukocytosis, lactic acidosis, hypoxemia in the setting of possible pneumonia and COPD exacerbation. He was receiving IV fluids for sepsis and IV antibiotics with Levaquin for infection Continue monitoring labs, vitals in respiratory status (4) Pneumonia: Qualifiers: Laterality: unspecified laterality Lung location: unspecified part of lung Pneumonia type: due to unspecified organism Qualified Code(s): J18.9 - Pneumonia, unspecified organism Code(s): J18.9 - Pneumonia, unspecified organism Status: Acute Assessment and Plan: IV Levaquin for possible residual pneumonia from last hospitalization. Believe this admission is more COPD exacerbation. (5) Dehydration: Code(s): E86.0 - Dehydration Status: Acute Assessment and Plan: Patient was thought to be dehydrated in the emergency room as well as lactic acid elevation from dehydration. Received IV fluids and now appears euvolemic. D/c IV fluids. Time Spent With Patient Time with patient: 25 - 35 minutes Subjective Date/time seen: 04/22/21 13:26 Interval history: Date of service 04/22/21: He reports feeling better today. He has not been up walking around much so he is unsure how is breathing is doing with exertion. He denies any fevers, chills. He has have some productive sputum but he is unsure the color in states it is not abnormal from his baseline. He denies any chest pain, nausea, vomiting, abdominal pain, leg swelling, calf pain, recent sick contacts, any recent contacts with someone with COVID-19 since he has not been vaccinated, or any other symptoms at this time. Review of Systems Review of Systems: All systems reviewed & are unremarkable except as noted in HPI and below Exam Narrative: Exam Narrative: General: 55-year-old man sitting up in bed, resting comfortably on 1L via NC. Appears comfortable. In no acute distress. Skin: No jaundice or cyanosis. Good skin turgor. Neck: Full range of motion. Supple. Respiratory: Decreased lung sounds to bilat
[2021-04-22] MEDS: methylPREDNISolone SOD SUCC 40 MG VIAL IV PUSH ×2 (16:54→21:07)
--- NOTE | 2021-04-22 17:26 | PC.NURSE ---
This patient, Alpesh Aguilar, was transferred to [[id number] ] on 04/22/21 at 1726. Personal belongings sent with patient. Report given to [ ]. Appropriate documentation sent with patient.
[2021-04-23] VITALS (14 sets, daily range): BP systolic 119–145; BP diastolic 71–90; PULSE 65–101; RESP 16–20; TEMP 36.1–36.7; O2SAT 93–100
[2021-04-23] MEDS: IPRATROPIUM BR 0.02% INH SOLN 0.5 MG/2.5 ML VIAL INHALATION ×4 (02:02→20:27)
[2021-04-23] MEDS: methylPREDNISolone SOD SUCC 40 MG VIAL IV PUSH ×3 (05:47→22:09)
[2021-04-23 06:45] LABS: Hematocrit 45.5 % (42.0-52.0); Hemoglobin 14.6 g/dL (14.0-18.0); Mean Corpuscular HGB Conc 32.1 g/dl (32-36); Mean Corpuscular Hemoglobin 29.3 pg (26-34); Mean Corpuscular Volume 91.4 fl (80-100); Mean Platelet Volume 11.7 fl (7.4-10.4); Platelet Count Result 224 k/mm3 (150-375); Red Blood Count 4.98 M/mm3 (4.6-6.20); Red Cell Distribution Width 13.1 % (11.5-14.5); White Blood Count 25.2 K/mm3 (4.5-10.0)
[2021-04-23 06:50] LABS: Anion Gap 7 mmol/L (8-16); Blood Urea Nitrogen 14 mg/dL (9-20); Carbon Dioxide 29 mmol/L (22-30); Chloride 103 mmol/L (98-107); Estimated CRCL calculation 102 ml/min; Estimated Glomerular Filt Rate > 60; Glucose 139 mg/dL (75-110); Potassium 3.8 mmol/L (3.4-5.0); Sodium 139 mmol/L (137-145)
[2021-04-23 06:54] LABS: Lactic Acid Reflex 2.4 mmol/L (0.7-2.1)
[2021-04-23 08:38] LABS: Band Neutrophils Percent 6 % (0-6); Monocytes Absolute Manual 0.75 K/mm3 (0.1-0.90); Monocytes Percent Manual 3 % (3-9); Neutrophils Absolute Manual 23.94 K/mm3 (1.3-6.7); Neutrophils Percent Manual 89 % (46-73); Platelet Estimate Adequate (Adequate); Total Cells Counted 100
[2021-04-23] MEDS: LORATADINE/PSEUDOEPHEDRINE (*CRX) 10/240 MG TABLET ER 24 HR 1 TAB PO (09:18)
[2021-04-23] MEDS: ENOXAPARIN 40 MG/0.4 ML SYRINGE SUB-Q (09:18)
[2021-04-23 09:35] LABS: Reflex Lactic Acid Yes or No Add Lactic
[2021-04-23 10:31] LABS: Lactic Acid 5.1 mmol/L (0.7-2.1)
--- NOTE | 2021-04-23 11:24 | PM.CNPUL ---
Assessment and Plan Assessment and plan (1) Acute exacerbation of chronic obstructive pulmonary disease (COPD): Code(s): J44.1 - Chronic obstructive pulmonary disease with (acute) exacerbation Status: Acute Assessment and Plan: He is admitted within several weeks of his last admission, triggering event is not clear. His chest CTA 04/21 shows residual pneumonia comparing CXR now and then. He did not have a chest CT at the last admission. He will need a follow-up CT to assure there is no mass underlying the infiltrate in the right base. I am concerned because his leukocytosis is persistent 25K with mild lactic 5.1 elevation suggestive of ongoing sepsis. His chest does not appear to have significant pneumonia. Could he have another nidus of infection? He has no abdominal pain. UA is negative. PLAN: Continue steroids, can convert to oral. Not ready to discharge. Alpha-1 phenotype and level. He has few markings in the left base. He is a candidate for Daliresp for COPD as he has had 2 exacerbations in a month. He needs out patient follow up including repeat chest CT in 3 months to assure that there is no mass in the RLL infiltrate. PFT may not be helpful as his last was 12/14/2016, with severe obstruction, as well as hyperinflation and air trapping. No response to bronchodilator. At discharge, change Duoneb in his nebulizer treatment to LABA alone without the ipratropium as he is on Trelegy, also has a LAMA, and this is overlap therapy. He is off the albuterol now due to tachycardia. He needs to put cheap air filters in the AC unit. He has none in right now. He would benefit from cardiopulmonary rehab, vaccinations - he is against getting COVID vaccine. (2) Acute on chronic respiratory failure with hypoxemia: Code(s): J96.21 - Acute and chronic respiratory failure with hypoxia Status: Acute Assessment and Plan: Admission ABG showed acute hypercapnia with normal serum HCO3. He has used O2 at home off and on for over 10 years. He needs to have repeat Home O2 testing to determine correct flow. Also needs re-evaluation of need for O2 with sleep as an out-patient. Needs to use oximeter to maintain saturation 90-94%, and not turn it up for shortness of breath. (3) Pneumonia: Qualifiers: Laterality: unspecified laterality Lung location: unspecified part of lung Pneumonia type: due to unspecified organism Qualified Code(s): J18.9 - Pneumonia, unspecified organism Code(s): J18.9 - Pneumonia, unspecified organism Status: Acute Assessment and Plan: This is a resolving pneumonia, had these infiltrates in March 30 RUL, now clearing on CXR. No organism identified. Calcitonin may help sort out bacterial vs viral. History of Present Illness History of Present Illness Consult date: 04/23/21 Requesting physician: Jaci Bell PA-C Reason for consult: pneumonia Chief complaint: pneumonia, copd, respiratory failure Narrative: NEW: Alpesh Aguilar is a 55 year old man with COPD who was a patient of Dr Fink years ago, has been on O2 for possibly 10 years, initially prescribed after an episode of pneumonia using it for a month, then at night and as needed with exertion. He was able to be off O2 for a while, and was stable on Trelegy, rare use of albuterol rescue inhaler and Duoneb in his nebulizer only when sick. Over a month ago, he removed the 3M high efficiency air filter from his AC as it was getting sucked into the the unit and causing his air conditioner to overwork. Sometimes later, he came into the emergency department on March 29, was having headache, shortness of breath and low saturation. On supplemental oxygen is saturation was 88-89%. He was admitted with pneumonia, discharged April 02,
--- NOTE | 2021-04-23 11:56 | P.PNIM_ITS ---
Progress Note: A&P Assessment and Plan (1) Acute on chronic respiratory failure with hypoxemia: Code(s): J96.21 - Acute and chronic respiratory failure with hypoxia Status: Acute Assessment and Plan: The patient has been admitted respiratory failure was likely due to COPD exacerbation. * CT imaging demonstrates old areas of prior pneumonia. He has not had any new fevers or chills. I suspect the majority of the patient's leukocytosis is due to leukemoid reaction as he was in respiratory distress for 12 hours before coming to the ER. He was markedly hypoxic and hypercapnic on arrival. * the patient has not been vaccinated for COVID, but he does not have any symptoms of COVID and his CT scan is not suggesting it. he has not been tested during this admission. * Patient is still on empiric antibiotic therapy with IV Levaquin 750 mg IV * Blood cultures have no growth to date * Will get a sputum culture * For the patient's COPD exacerbation will schedule Xopenex and Atrovent. Will stop albuterol as the patient has persistent tachycardia. * Will decreased IV Solu-Medrol to 40 mg q.8 hours. * Continue supplemental oxygen titrate to maintain a saturation of great then 90% * consult pulmonology Thank you for recommendations (2) Acute exacerbation of chronic obstructive pulmonary disease (COPD): Code(s): J44.1 - Chronic obstructive pulmonary disease with (acute) exacerbation Status: Acute Assessment and Plan: See above (3) Sepsis: Code(s): A41.9 - Sepsis, unspecified organism Status: Acute Assessment and Plan: * upon admission patient had a lactate of 3.4 that went up to 5.1 and back down to 2.4 today patient's lactate is 5.1 * white blood cell count upon admission was 35.2 however he did go down to 18 and then back up today to 25 * vital signs upon admission was a heart rate of 120 respiration rate of 24 blood pressure 188/88 and a temperature of 36.6? * current vital signs 36.1 ? heart rate 85 respiration rate 18 blood pressure 119/73 * chest x-ray does show a resolving pneumonia that he was diagnosed with back in March, CTA shows residual from pneumonia atelectasis from last month * patient did receive fluids in the ED on the at 30 mils per kilos bolus and then fluids at 75 mL an hour that were discontinued upon admission to the floor * possible source of infection could be the COPD exacerbation, pneumonia * he is on Solu-Medrol 40 mg IV q.8 which could be the reason why he has a higher white count today * he has also been receiving Levaquin 750 mg daily * I really do not think this patient has sepsis he is stable walking around his room has no real complaints but shortness of breath. * I almost wonder if there is a medications causing his lactic to go up * Repeat lactate * will get an LDH Legionella and abdominal CT * will trend labs * labs in a.m. (4) Pneumonia: Qualifiers: Laterality: unspecified laterality Lung location: unspecified part of lung Pneumonia type: due to unspecified organism Qualified Code(s): J18.9 - Pneumonia, unspecified organism Code(s): J18.9 - Pneumonia, unspecified organism Status: Acute Assessment and Plan: * chest x-ray shows residual pneumonia along with CTA * most likely not pneumonia more likely COPD exacerbation * patient was given p.o. Levaquin upon discharge for 5 days on 04/02/2021 * vi
--- NOTE | 2021-04-23 11:56 | PM.IMPN ---
Progress Note: A&P Assessment and Plan (1) Acute on chronic respiratory failure with hypoxemia: Code(s): J96.21 - Acute and chronic respiratory failure with hypoxia Status: Acute Assessment and Plan: The patient has been admitted respiratory failure was likely due to COPD exacerbation. CT imaging demonstrates old areas of prior pneumonia. He has not had any new fevers or chills. I suspect the majority of the patient's leukocytosis is due to leukemoid reaction as he was in respiratory distress for 12 hours before coming to the ER. He was markedly hypoxic and hypercapnic on arrival. the patient has not been vaccinated for COVID, but he does not have any symptoms of COVID and his CT scan is not suggesting it. he has not been tested during this admission. Patient is still on empiric antibiotic therapy with IV Levaquin 750 mg IV Blood cultures have no growth to date Will get a sputum culture For the patient's COPD exacerbation will schedule Xopenex and Atrovent. Will stop albuterol as the patient has persistent tachycardia. Will decreased IV Solu-Medrol to 40 mg q.8 hours. Continue supplemental oxygen titrate to maintain a saturation of great then 90% consult pulmonology Thank you for recommendations (2) Acute exacerbation of chronic obstructive pulmonary disease (COPD): Code(s): J44.1 - Chronic obstructive pulmonary disease with (acute) exacerbation Status: Acute Assessment and Plan: See above (3) Sepsis: Code(s): A41.9 - Sepsis, unspecified organism Status: Acute Assessment and Plan: upon admission patient had a lactate of 3.4 that went up to 5.1 and back down to 2.4 today patient's lactate is 5.1 white blood cell count upon admission was 35.2 however he did go down to 18 and then back up today to 25 vital signs upon admission was a heart rate of 120 respiration rate of 24 blood pressure 188/88 and a temperature of 36.6? current vital signs 36.1 ? heart rate 85 respiration rate 18 blood pressure 119/73 chest x-ray does show a resolving pneumonia that he was diagnosed with back in March, CTA shows residual from pneumonia atelectasis from last month patient did receive fluids in the ED on the at 30 mils per kilos bolus and then fluids at 75 mL an hour that were discontinued upon admission to the floor possible source of infection could be the COPD exacerbation, pneumonia he is on Solu-Medrol 40 mg IV q.8 which could be the reason why he has a higher white count today he has also been receiving Levaquin 750 mg daily I really do not think this patient has sepsis he is stable walking around his room has no real complaints but shortness of breath. I almost wonder if there is a medications causing his lactic to go up Repeat lactate will get an LDH Legionella and abdominal CT will trend labs labs in a.m. (4) Pneumonia: Qualifiers: Laterality: unspecified laterality Lung location: unspecified part of lung Pneumonia type: due to unspecified organism Qualified Code(s): J18.9 - Pneumonia, unspecified organism Code(s): J18.9 - Pneumonia, unspecified organism Status: Acute Assessment and Plan: chest x-ray shows residual pneumonia along with CTA most likely not pneumonia more likely COPD exacerbation patient was given p.o. Levaquin upon discharge for 5 days on 04/02/2021 patient has also been getting IV Lev[place]quin [place] [id number] today however he is on IV steroids will trend labs labs in a.m. (5) Dehydration: Code(s): E86.0 - Dehydration Status: Acute Assessment and Plan: Patient was thought to be dehydrated in the emergency room as well as lactic
[2021-04-23 15:12] LABS: Lactate Dehydrogenase 423 U/L (313-618)
[2021-04-23 15:20] LABS: Lactic Acid Reflex 3.6 mmol/L (0.7-2.1)
[2021-04-24] VITALS (12 sets, daily range): BP systolic 128–139; BP diastolic 72–84; PULSE 71–116; RESP 16–18; TEMP 36.5–36.6; O2SAT 87–96
[2021-04-24] MEDS: IPRATROPIUM BR 0.02% INH SOLN 0.5 MG/2.5 ML VIAL INHALATION ×3 (02:33→14:01)
[2021-04-24] MEDS: methylPREDNISolone SOD SUCC 40 MG VIAL IV PUSH ×2 (06:21→14:11)
[2021-04-24 06:39] LABS: Basophils Percent Auto 0.1 % (0.2-1.2); Hematocrit 48.7 % (42.0-52.0); Hemoglobin 15.7 g/dL (14.0-18.0); Immature Granulocyte Absolute 0.25 K/mm3 (0.00-0.031); Immature Granulocyte Percent A 1.3 % (0-0.5); Lymphocytes Absolute Auto 0.68 K/mm3 (0.9-3.2); Lymphocytes Percent Auto 3.4 % (18.3-44.2); Mean Corpuscular HGB Conc 32.2 g/dl (32-36); Mean Corpuscular Hemoglobin 29.5 pg (26-34); Mean Corpuscular Volume 91.5 fl (80-100); Mean Platelet Volume 11.4 fl (7.4-10.4); Monocytes Absolute Auto 0.6 K/mm3 (0.1-0.6); Monocytes Percent Auto 2.9 % (2.6-8.5); Neutrophils Absolute Auto 18.3 K/mm3 (1.3-6.7); Neutrophils Percent Auto 92.3 % (45.5-73.1); Platelet Count Result 212 k/mm3 (150-375); Red Blood Count 5.32 M/mm3 (4.6-6.20); Red Cell Distribution Width 13.2 % (11.5-14.5); White Blood Count 19.8 K/mm3 (4.5-10.0)
[2021-04-24 06:56] LABS: Alanine Aminotransferase 37 U/L (4-50); Albumin Level 3.8 g/dL (3.5-5.1); Alkaline Phosphatase 62 U/L (38-126); Anion Gap 7 mmol/L (8-16); Aspartate Amino Transferase 27 U/L (17-59); Bilirubin,Total 0.3 mg/dL (0.2-1.3); Blood Urea Nitrogen 17 mg/dL (9-20); Calcium 9.1 mg/dL (8.4-10.2); Carbon Dioxide 29 mmol/L (22-30); Chloride 102 mmol/L (98-107); Estimated CRCL calculation 88 ml/min; Estimated Glomerular Filt Rate > 60; Glucose 148 mg/dL (75-110); Magnesium 2.1 mg/dL (1.6-2.3); Potassium 4.3 mmol/L (3.4-5.0); Sodium 138 mmol/L (137-145)
--- NOTE | 2021-04-24 08:40 | PC.NURSE ---
patient to xray per wheelchair
[2021-04-24] MEDS: ENOXAPARIN 40 MG/0.4 ML SYRINGE SUB-Q (10:32)
[2021-04-24] MEDS: LORATADINE/PSEUDOEPHEDRINE (*CRX) 10/240 MG TABLET ER 24 HR 1 TAB PO (10:33)
--- NOTE | 2021-04-24 12:45 | PCRCNOTE ---
HOME O2 EVAL COMPLETE, PT REQUIRES 2 LITERS WITH ACTIVITY. PT HAS PURCHASED HIS OWN CONCENTRATOR AND PORTABLE CONCENTRATOR FOR HOME USE. TO BRING IN FOR DISCHARGE.
--- NOTE | 2021-04-24 13:42 | PM.PNPUL ---
Progress Note: A&P Assessment and Plan (1) Acute exacerbation of chronic obstructive pulmonary disease (COPD): Code(s): J44.1 - Chronic obstructive pulmonary disease with (acute) exacerbation Status: Acute Assessment and Plan: He was admitted within several weeks of his last admission, triggering event is not clear. His chest CTA 04/21 shows residual pneumonia comparing CXR now and then. He did not have a chest CT at the last admission. He will need a follow-up CT to assure there is no mass underlying the infiltrate in the right base. I am concerned because his leukocytosis is persistent 25K with mild lactic 5.1 elevation suggestive of ongoing sepsis. His chest does not appear to have significant pneumonia. Could he have another nidus of infection? He has no abdominal pain. UA is negative. PLAN: OK to go home today 04/24 Needs 2 L/min O2 with exertion and sleep. He had a Home O2 study today. Continue oral steroids. Alpha-1 labs are pending. r/o alpha-1 anti-trypsin deficiency; if (+) treatment includes replacement therapy to slow progression. He is a candidate for Daliresp for COPD as he has had 2 exacerbations in a month. \ This medication has to have prior authorization from his insurance company, and we can arrange as outpatient. He needs out patient follow up 1-2 weeks including repeat chest CT in 3 months to assure that there is no mass in the RLL infiltrate. Consider PFT; last one was 12/14/2016, with severe obstruction, as well as hyperinflation and air trapping. No response to bronchodilator. Stop Duoneb; change duoneb to Levalbuterol or albuterol alone; he is on Trelegy, which has a LAMA, and Duoneb also has ipratropium. This is overlap therapy. He is off the albuterol now due to tachycardia. He needs to put cheap air filters in the AC unit. He has none in right now. He would benefit from cardiopulmonary rehab, vaccinations - he is against getting COVID vaccine. (2) Acute on chronic respiratory failure with hypoxemia: Code(s): J96.21 - Acute and chronic respiratory failure with hypoxia Status: Acute Assessment and Plan: Admission ABG showed acute hypercapnia with normal serum HCO3. He has used O2 at home off and on for over 10 years. He had a repeat Home O2 test today 04/24; Needs 2 L/min O2 with exertion and sleep. Also needs re-evaluation of need for O2 with sleep as an out-patient. Needs to use oximeter to maintain saturation 90-94%, and not turn it up for shortness of breath. (3) Pneumonia: Qualifiers: Laterality: unspecified laterality Lung location: unspecified part of lung Pneumonia type: due to unspecified organism Qualified Code(s): J18.9 - Pneumonia, unspecified organism Code(s): J18.9 - Pneumonia, unspecified organism Status: Acute Assessment and Plan: This is a resolving pneumonia, had these infiltrates in March 30 RUL, now clearing on CXR. No organism identified. Subjective Date/time seen: 04/24/21 13:42 follow up : Alpesh Aguilar is a 55 year old man with COPD, long stranding COPD, O2 use for over 10 years, off and on; feels better today. He feels ready to go home. He is on room air at rest, needs 2 L/min with exertion. 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 He was stable on Trelegy, rare use of albuterol rescue inhaler and Duoneb in his nebulizer only when sick. Over a month ago, he removed the 3M high efficiency air filter from his AC as it was getting sucked into the the unit and causing his air conditioner to overwork. Later, March 29, ER visit, was having headache, shortness of breath and low saturation. Required supplemental oxygen is saturation was 88-89%. He was admitted with pneumonia, dischar
--- NOTE | 2021-04-24 15:24 | PM.DS ---
DS: Admitting Diagnosis Admitting Diagnosis Admitting Diagnosis: SOB DS: Discharge Diagnosis Discharge Diagnosis (1) Acute on chronic respiratory failure with hypoxemia: Code(s): J96.21 - Acute and chronic respiratory failure with hypoxia Status: Acute Assessment and Plan: The patient is a 55 year old man with a history of COPD with chronic hypoxic respiratory failure and recent hospitalization for pneumonia who presented to the ER with SOB which woke him up from sleep at 3 am on 04/21/21. He tried his home medications, nebulizer treatments without any relief and came to the ER with continued symptoms. Initial vital showed he was afebrile, tachycardic 120 bpm, increased RR 24, BP 188/88, O2 97% on 6 L via NC. The initial labs showed leukocytosis at 35,000, elevated neutrophils 86%, ABG showing respiratory acidosis with a pH of 7.148, elevated pCO2 at 76, elevated PO2 and 115, on 5 L via nasal cannula. BMP normal other than elevated glucose at 222. Elevated lactic acid level at 3.4, reflux lactic acid was 5.1. Urinalysis shows no acute signs of infection. Normal urine tox screen. Normal ethyl alcohol level. CXR showed Nearly resolved right lung airspace disease residual from pneumonia last month. Hyperinflation. CT Head showed No acute intracranial findings. CTA Chest showing 2 regions of subsegmental right upper lobe airspace disease likely residual pneumonia/atelectasis from last month. Follow-up chest CT in 3 months recommended to exclude underlying cancer. Moderate emphysema and hyperinflation. No pulmonary emboli. He was admitted into the hospital and started on IV antibiotics for possible residual pneumonia, IV Solu-Medrol and DuoNeb treatments for COPD exacerbation and he was placed on a BiPAP due to his abnormal ABG. Repeat ABG showed resolution of his respiratory acidosis And hypercapnia. he was able to be weaned back to a nasal cannula. He slowly improved over his hospitalization but his lactic acid level remained elevated which was concerning. We did a CT abdomen pelvis with contrast which showed 10 mm centimeters segment of mildly dilated small bowel with fluid level, mid to lower left abdomen. Consider small bowel series. no acute signs of ischemic bowel, underlying infection or other abnormality. I did ask get a small-bowel follow-through which was recommended showing normal appearing small bowel. he was also seen by a nurse staff who wean down his IV Solu-Medrol and recommended some adjustments to his home medications. She would like to see him in follow-up in 1-2 weeks and have a repeat CT scan of his chest in 3 months for resolution of his pneumonia and to rule out any lung cancer. The patient overall was feeling much better, was able to be weaned down to room air at rest and 2 L with exertion. He was continued on Levaquin for few more days, to continue albuterol nebulizer treatments as needed for shortness of breath, and his trelegy inhaler. return to ER warnings given. The patient understands and agrees the plan all questions answered. The patient has not been vaccinated for COVID, but he does not have any symptoms of COVID and his CT scan is not suggesting it. he has not been tested during this admission. (2) Acute exacerbation of chronic obstructive pulmonary disease (COPD): Code(s): J44.1 - Chronic obstructive pulmonary disease with (acute) exacerbation Status: Acute Assessment and Plan: See above (3) Sepsis: Code(s): A41.9 - Sepsis, unspecified organism Status: Acute Assessment and Plan: (4) Pneumonia: Qualifiers: Laterality: unspecified laterality Lung location: unspecified part of lung Pneumonia type: due to unspecified organism Qualified Code(s): J18.9 - Pneumonia, unspecified organism
[2021-04-27 15:25] LABS: Alpha-1-Antitrypsin, QN 213 mg/dL (83-199)
--- NOTE | 2021-05-01 12:13 | PC.NURSE ---
Sputum cx shows normal lashell MRSA is negative A1AT- elevated at 213. Results faxed to Dr. Vasquez.
== END 2021-04-24 17:11 | disposition home or self-care (01) | DRG 871 ==
LOC: ANHED 17:20 → ANHIMU 04-22 06:51 → ANH3MEDSUR 04-24 15:00 → ANHIMU 04-25 10:26
PROVIDERS: Internal Medicine; Internal Medicine Critical Care Medicine; Nurse Practitioner; Admitting Provider Internal Medicine; Emergency Provider Emergency Medicine; PCP Family Medicine; Visit Provider Physician Assistant
DX: A41.9 Sepsis, unspecified organism (principal); J18.9 Pneumonia, unspecified organism; J96.21 Acute and chronic respiratory failure with hypoxia; R65.20 Severe sepsis without septic shock; J43.9 Emphysema, unspecified; E86.0 Dehydration; Z87.891 Personal history of nicotine dependence; Z99.81 Dependence on supplemental oxygen
CPT/HCPCS: 36415; 36600; 70450; 71045; 71275; 74177; 74250; 80048; 80053; 80307; 81001; 82103; 82104; 82375; 82805; 82948; 83050; 83605; 83615; 83735; 85025; 87040; 87070; 87081; 87205; 93005; 94002; 94618; 94640; 99285; A9270; J1650; J1956; J2920; J2930; J7030; Q9967

== ENCOUNTER 2021-08-22 05:57 | Emergency (ER) | payer BC, SELFPAY ==
--- NOTE | ~2021-08-22 | XR_ITS ---
XR chest 1V portable 08/22/2021 06:47 Indication: Dyspnea. Procedure: AP portable chest Comparison: Comparison to multiple prior studies sequentially, with oldest reviewed study dated 03/29. Findings: There are emphysematous changes. Heart size normal. No acute focal pneumonia, edema or pneu mothorax. Chronic blunting left lateral costophrenic recess, likely pleural thickening. Impression: 1: No acute cardiopulmonary disease. Reviewed, dictated and finalized at location A. CLERKS SUPERVISOR Impression: 1: No acute cardiopulmonary disease.
--- NOTE | 2021-08-22 06:01 | ECG_ITS ---
Measurements Intervals [place] Rate: 92 P: 96 HI: 200 QRS: 65 QRSD: 77 T: 76 QT: 363 QTc: 449 Interpretive Statements SINUS RHYTHM WITH SINUS ARRHYTHMIA BORDERLINE T WAVE ABNORMALITY- ANT/HIGH LAT LEADS BASELINE ARTIFACT- I, II, III, AVR, AVL, AVF, V3, V5-V6 BORDERLINE ECG Electronically Signed On 08-22-2021 6:30:24 GRISTMILL OPERATOR by Douglas Mancera D.O.
[2021-08-22 06:10] VITALS: BP 154/88; PULSE 93; RESP 18; TEMP 36.6; O2SAT 100
[2021-08-22 06:17] VITALS: O2SAT 98
--- NOTE | 2021-08-22 06:19 | ED.GENADULT ---
HPI - General Adult General Chief complaint: Shortness of Breath/Dyspnea Stated complaint: SOB Time Seen by Provider: 08/22/21 06:17 History of Present Illness HPI narrative: Patient 55-year-old gentleman who presents to emergency department with chief complaint of shortness of breath. Patient reports that he has history of COPD uses a trilogy inhaler and uses oxygen as needed basis. The patient reports that he started having increasing shortness of breath has been wheezing more and reports that he started his home oxygen and did not have improvement. Patient reports this feels similar to whenever he had to be admitted back in March or April reports that he has had no fevers but reports that he has not been vaccinated for COVID-19. Related Data Home Medications Medication Instructions Recorded Confirmed guaifenesin 600 mg tablet, 600 mg PO BID PRN 02/12/20 07/21/21 extended release 12 hr Claritin-D 24 Hour 1 tablet BYMOUTH DAILY 04/21/21 07/21/21 albuterol sulfate [Proventil HFA] 2 puff INHALATION Q4-6H PRN 04/21/21 07/21/21 ipratropium-albuterol 3 ml INHALATION QID PRN 04/21/21 07/21/21 potassium 270 meq BYMOUTH DAILY PRN 04/21/21 07/21/21 Allergies Allergy/AdvReac Type Severity Reaction Status Date / Time cephalexin Allergy Unknown Skin Verified 08/22/21 06:18 Reaction Review of Systems Review of Systems: A 10 system review of systems was completed on the patient and is negative except for what is stated in the HPI. Nursing and ancillary documentation was reviewed. [facility] Past Medical History Medical History Chronic respiratory failure on p.r.n. home O2 COPD (chronic obstructive pulmonary disease) Polycythemia secondary to hypoxia Surgical History Surgical History H/O umbilical hernia repair Family History Family History Mother Family history of thyroid disease Sibling Diabetes mellitus Family history of thyroid disease Cerebrovascular accident Grandparent Diabetes mellitus Social History Social History Social History: He has been twice and lives alone. He has a female friend who comes over each weekend. He does not have any biologic children. 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 He started smoking at 4 years of age in started smoking at least a pack a day around 9 years of age. He smoked as much as 1.5 packs of cigarettes per day. He has a 60 pack per year smoking history. He has 2 cats at home. Primary care physician: Dr. 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 HEAD: Normocephalic, atraumatic. EYES: PERRLA and EOMI. ENT: Nares clear, no rhinorrhea or epistaxis. Mucous membranes moist. NECK: Supple. CHEST: Clear to auscultation. No respiratory distress. HEART: Regular rate and rhythm. No murmur heard. Normal peripheral pulses. ABDOMEN: Soft, nontender, nondistended, normal active bowel sounds. EXTREMITIES: Normal range of motion. No edema. SKIN: Warm, dry, no rash. NEURO: No focal deficits. Alert and oriented x3. PSYCH: Normal mood and affect. Course Course Emergency Course: EKG is sinus rhythm rate of [address] elevation or ST depression Vital Signs Vital signs: Vital Signs Temperature 36.6 C 08/22/21 06:10 Pu
[2021-08-22] MEDS: methylPREDNISolone SOD SUCC 125 MG VIAL IV PUSH (06:26)
[2021-08-22] MEDS: ALBUTEROL SULFATE (*SP) INHALER 2 PUFF INHALATION (06:29)
[2021-08-22 06:42] LABS: Basophils Absolute Auto 0.1 K/mm3 (0.0-0.1); Basophils Percent Auto 0.8 % (0.2-1.2); Eosinophils Absolute Auto 0.1 K/mm3 (0-0.3); Eosinophils Percent Auto 1.3 % (0-4.4); Hematocrit 51.3 % (42.0-52.0); Immature Granulocyte Absolute 0.02 K/mm3 (0.00-0.031); Immature Granulocyte Percent A 0.2 % (0-0.5); Lymphocytes Absolute Auto 0.79 K/mm3 (0.9-3.2); Lymphocytes Percent Auto 8.6 % (18.3-44.2); Mean Corpuscular HGB Conc 33.1 g/dl (32-36); Mean Corpuscular Volume 90.5 fl (80-100); Mean Platelet Volume 10.5 fl (7.4-10.4); Monocytes Absolute Auto 0.5 K/mm3 (0.1-0.6); Monocytes Percent Auto 5.5 % (2.6-8.5); Neutrophils Absolute Auto 7.7 K/mm3 (1.3-6.7); Neutrophils Percent Auto 83.6 % (45.5-73.1); Platelet Count Result 226 k/mm3 (150-375); Red Blood Count 5.67 M/mm3 (4.6-6.20); Red Cell Distribution Width 13.2 % (11.5-14.5); White Blood Count 9.2 K/mm3 (4.5-10.0)
[2021-08-22 06:54] LABS: Lactic Acid Reflex 0.7 mmol/L (0.7-2.1)
[2021-08-22 06:54] LABS: Alanine Aminotransferase 28 U/L (4-50); Albumin Level 4.3 g/dL (3.5-5.1); Alkaline Phosphatase 92 U/L (38-126); Anion Gap 9 mmol/L (8-16); Aspartate Amino Transferase 28 U/L (17-59); Bilirubin,Total 0.3 mg/dL (0.2-1.3); Blood Urea Nitrogen 12 mg/dL (9-20); Calcium 8.8 mg/dL (8.4-10.2); Carbon Dioxide 32 mmol/L (22-30); Chloride 102 mmol/L (98-107); Estimated CRCL calculation 78 ml/min; Estimated Glomerular Filt Rate > 60; Glucose 133 mg/dL (65-110); Potassium 3.6 mmol/L (3.4-5.0); Sodium 143 mmol/L (137-145)
[2021-08-22 06:55] VITALS: BP 138/93; PULSE 96; RESP 16; O2SAT 99
[2021-08-22 07:06] LABS: Troponin I < 0.012 ng/mL (0.000-0.034)
[2021-08-22 07:07] LABS: INR 0.9; Prothrombin Time 12.5 Seconds (11.1-14.7)
[2021-08-22 07:08] LABS: Partial Thromboplastin Time 29.9 SECONDS (22.3-36.8)
[2021-08-22] MEDS: ACETAMINOPHEN 325 MG TABLET 650 MG PO (07:18)
[2021-08-22 07:55] LABS: Alveolar/Arterial O2 Gradient 61.8 mmHg; Base Excess ABG 1.1 mEq/l (+/-2.0); Fractional Inspired Oxygen 28 %; HCO3 ABG 28.4 mEq/l (22.0-26.0); Oxygen Content ABG 22.5 %vol (16.0-22.0); Oxygen Saturation ABG 93.7 % (95.0-100.0); Oxyhemoglobin 92.8 % THb (90.0-100.0); PCO2 ABG 54.3 mmHg (35.0-45.0); PO2 ABG 73.8 mmHg (80.0-100.0); PO2 FiO2 Ratio Arterial Blood 2.64 %; Total Hemoglobin 17.3 g/dL (12.0-18.0); pH ABG 7.336 (7.350-7.450)
[2021-08-22 07:56] LABS: Device NASAL CANNULA; Modified Allen's Test Pass; Site Drawn RIGHT RADIAL
== END 2021-08-22 08:43 | disposition home or self-care (01) ==
PROVIDERS: Emergency Medicine; Emergency Provider Emergency Medicine; PCP Family Medicine
DX: J44.9 Chronic obstructive pulmonary disease, unspecified (principal); F17.210 Nicotine dependence, cigarettes, uncomplicated
CPT/HCPCS: 36415; 36600; 71045; 80053; 82805; 83605; 84484; 85025; 85610; 85730; 93005; 96374; 99284; A9270; J2930

== ENCOUNTER 2021-09-19 08:41 | Outpatient (CLI) | payer BC, SELFPAY ==
[2021-09-19 09:05] VITALS: PULSE 97; O2SAT 93
[2021-09-19 09:08] VITALS: PULSE 106; O2SAT 84
[2021-09-19 09:11] VITALS: PULSE 96; O2SAT 86
[2021-09-19 09:13] VITALS: PULSE 96; O2SAT 87
[2021-09-19 09:17] VITALS: PULSE 100; O2SAT 91
--- NOTE | 2021-09-19 09:39 | HOMEO2EVAL ---
Evaluation was performed at [facility] Home Oxygen Evaluation RC: Home Oxygen (O2) Evaluation Start: 09/19/21 09:25 Freq: Status: Active Protocol: RPE Activity Type Activity Date Activity User E-Sign Co-Sign Detail Recorded Client Recorded Date Recorded By Document 09/19/21 09:05 SJB [id number] 09/19/21 09:38 SJB Document 09/19/21 09:08 SJB [id number] 09/19/21 09:38 SJB Document 09/19/21 09:11 SJB [id number] 09/19/21 09:38 SJB Document 09/19/21 09:13 SJB [id number] 09/19/21 09:38 SJB Document 09/19/21 09:17 SJB [id number] 09/19/21 09:38 SJB 09/19/21 09/19/21 09/19/21 09:05 09:08 09:11 Home O2 Evaluation Test Phase Resting Exercise Exercise Oxygen Delivery Room Air Room Air Nasal Cannula Oxygen Flow Rate (L/min) 1 Pulse Oximetry (90-100 %) 93 84 L 86 L Pulse Rate (60-100 beats/min) 97 106 H 96 Activity Tolerance Good Good Rating of Perceived Dyspnea (PD) +1 Mild, +2 Mild, Some Noticeable to Difficulty, the Participant Noticeable to but Not to an the Observer Observer Rate of Perceived Exertion (PE) 10 12 Ambulation Distance (feet) 196 340 Home Oxygen Evaluation Comments Will begin walk Will start on 1 Will increase on r/a. lpm 02 and 02 to 2 lpm. continue walk. PLB encouraged . Treatment Charges O2 Evaluation - Outpatient 09/19/21 09/19/21 09:13 09:17 Home O2 Evaluation Test Phase Exercise Exercise Oxygen Delivery Nasal Cannula Nasal Cannula Oxygen Flow Rate (L/min) 2 3 Pulse Oximetry (90-100 %) 87 L 91 Pulse Rate (60-100 beats/min) 96 100 Activity Tolerance Good Good Rating of Perceived Dyspnea (PD) +2 Mild, Some Difficulty, Noticeable to the Observer Rate of Perceived Exertion (PE) 13 Somewhat 13 Somewhat Hard Hard Ambulation Distance (feet) 425 425 Home Oxygen Evaluation Comments Will increase Pt finished to 3 lpm and walk on 3 lpm continue. PLB 02 with Sp02 encouraged. staying at 91% and above. Yari well, walking quickly. Good effort. Treatment Charges
--- NOTE | 2021-09-22 09:42 | WPDPFTINT ---
PFT Procedure Performed PFT Procedure Performed Spirometry with Pre/Post Bronchodilator Plethysmography (Lung Vol) Diffusing Cap (DLCO) Flow Vol Loop PFT Interpretation DOS: 09/19/2021 REQUESTING: Dr. Garcia REASON FOR TESTING: COPD PULMONARY FUNCTION TESTS Results are reliable and reproducible. Spirometry: FEV1 before bronchodilator is 20% predicted, extremely low. FVC is 60%, moderately decreased. FEV1/FVC is decreased consistent with airflow obstruction. There is a 12% increased in FVC after bronchodilator, and this is greater than 200 mL. This is significant. Lung volumes: Total lung capacity is 155% consistent with moderate hyperinflation. residual volume is 320% consistent with extreme air trapping. RV/TLC is increased consistent with air trapping. Increased airway resistance 560%. Diffusion: DLCO 44%. Moderately decreased. Flow volume loop: Severe scooping of the expiratory limb consistent with obstruction IMPRESSION: Extremely severe obstructive ventilatory impairment with good response to bronchodilator, moderate hyperinflation and severe air trapping with moderate diffusion impairment. This is consistent with emphysema. Larissa Vasquez MD
--- NOTE | 2021-09-22 09:49 | WPDSIXMINUTE ---
Six Minute Walk Procedure Procedure Performed Pulmonary Stress Test (6 min walk) Six Minute Walk Six Minute Walk: DATE OF SERVICE: 09/19/2021 REQUESTING PHYSICIAN: Dr. Garcia REASON FOR TESTING: COPD SIX MINUTE WALK This test was conducted per ATS standards. The test was conducted on room air with a saturation of 93% and a pulse of 97. The patient walked with saturation decreasing to 84% after 3 minutes. Oxygen was added at 1 L and the patient resumed walking. Saturation remained low at 86%. Oxygen was increased to 2 L a minute and saturation remained low at 87%. At 3 liters/minute the patient was able to walk and maintain a saturation of 91%. Distance walked was 425 feet, 129.5 meters. IMPRESSION: This patient requires supplemental oxygen at 3 liters/minute with exertion. No supplemental oxygen is required at rest. Distance walked is less than expected for age, 129.5 meters.
== END 2021-09-19 08:42 | disposition home or self-care (01) ==
LOC: CHSCARD 08:43
PROVIDERS: PCP Family Medicine; Visit Provider Internal Medicine Pulmonary Disease
DX: J44.9 Chronic obstructive pulmonary disease, unspecified (principal)
CPT/HCPCS: 94060; 94618; 94726; 94729